=== PATIENT | female | born 1955 | race Caucasian/White ===

== ENCOUNTER 2022-09-16 10:21 | Outpatient (CLI) | payer BC, SELFPAY ==
--- OUTSIDE RECORDS SUMMARY | 2022-09-16 10:24 | XMS_ITS | Continuity of Care Document ---
Author Name Unknown Organization [facility] Address [address] [place] [address]- Care Team Providers Care Aviation Engineer Name Role Phone Physician, PCP Unknown Primary Care Physician Un available Encounter 06/25/22 - 06/25/22 [facility] [address] [place] [address]- Encounter Diagnosis Encounter for screening mammogram for malignant neoplasm of breast(Final) - Discharge Disposition: Discharged to Home or Self Care Attending Physician: Sejal Hinton NP Allergies, Adverse Reactions, Alerts No Known Allergies Immunizations Given and Recorded Vaccine Date Status Refusal Reason SARS-CoV-2 (COVID-19) PFIZER (DILUTED) 07/22/21 Re corded pneumococcal 23-valent vaccine 03/25/21 Recorded pneumococcal 23-valent vaccine 04/12/15 Recorded SARS-CoV-2 (COVID-19) PFIZER 12/18/20 Recorded SARS-CoV-2 (COVID-19) PFIZER 06/07/20 Recorded SARS-CoV-2 (COVID-19) PFIZER 05/17/20 Recorded influenza virus vaccine 11/26/20 Recorded influenza virus vaccine 01/27/19 Recorded influenza virus vaccine 12/27/17 Recorded influenza virus vaccine 12/31/16 Recorded influenza virus vaccine 01/04/16 Recorded influenza virus vaccine 01/18/15 Recorded influenza virus vaccine 12/16/13 Recorded influenza virus vaccine 12/16/12 Recorded influenza virus vaccine 11/28/11 Recorded influenza virus vaccine 01/01/11 Recorded pneumococcal 13-valent vaccine 03/19/20 Recorded zoster vaccine, inactivated 08/23/18 Recorded zoster vaccine, inactivated 05/30/18 Recorded diphtheria/pertussis, acel/tetanus adult 06/10/16 Recorded influenza virus vaccine H1N1 inactivated 01/10/09 Recorded tetanus-diphtheria toxoids 06/01/06 Recorded Not Given Vaccine Date Status Refusal Reason influenza virus vaccine 1 01/17/19 Not Given Fred alaniz Refuses 1Result Comment: not available Medications acetaminophen-HYDROcodone 325 mg-5 mg oral tablet 1 Tab, PO, Q3h, PRN Pain/Discomfort, # 40 Tab, 0 Refill(s), Pharmacy: [facility] [id number] [facility], 162.56, cm, 10/02/21 13:45:00 CDT, Height, 65.433, kg, 10/02/21 13:45:00 CDT, Weight Start Date: 10/03/21 Status: Ordered amLODIPine 5 mg oral tablet Take 1 Tab, PO, Daily Start Date: 08/17/21 Status: Ordered atorvastatin 20 mg oral tablet Take 1 Tab, PO, Bedtime Start Date: 10/02/21 Status: Ordered calcium and vitamin D combination 600 mg-125 Unit oral tablet 1 Tab, PO, BID Start Date: 01/05/20 Status: Ordered donepezil 5 mg oral tablet Take 1 Tab, PO, Bedtime Start Date: 10/02/21 Status: Ordered etodolac 300 mg oral capsule Take 1 Cap, PO, BID, # 21 Cap, 0 Refill(s), Pharmacy: [facility] [address] [facility], 165, cm, 08/17/21 15:13:00 CDT, Height, 66, kg, 08/17/21 15:13:00 CDT, Weight Start Date: 08/17/21 Status: Ordered Evista 60 mg oral tablet Take 1 Tab, PO, Daily, # 90 Tab, 0 Refill(s), Pharmacy: [facility] [id number] [facility], 162.9, cm, 10/03/21 7:40:00 CDT, Height, 65.82, kg, 10/03/21 7:40:00 CDT, Weight Start Date: 03/11/22 Status: Ordered Fluticasone 50 mcg Nasal [place] 1 [place], Nares-Both, Daily, 0 Refill(s) Start Date: 07/22/21 Status: Ordered Ipratropium Nasal [place] 0.03% 2 [place], Nares-Both, BID, 0 Refill(s) Start Date: 07/22/21 Status: Ordered melatonin 3 mg oral tablet Take 1 Tab, PO, Bedtime Start Date: 10/02/21 Status: Ordered Multiple Vitamins with Minerals and Essential Fatty Acids oral capsule 1 Cap, PO, Daily Start Date: 01/05/20 Status: Ordered nadolol 40 mg oral tablet Take 1 Tab, PO, Daily Start Date: 08/17/21 Status: Ordered Protonix 40 mg oral enteric coated tablet Take 1 Tab, PO, Daily, 0 Refill(s) Start Date: 08/10/19 Status: Ordered raloxifene 60 mg oral tablet Take 1 Tab, PO, Daily, # 90 Each, 0 Refill(s), Pharmacy: [facility] [id number] [facility], 162.9, cm, 10/03/21 7:40:00 CDT, Height, 61.798, kg, 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 TRAINING GENERALIST, Weight Start Date: 05/25/22 Status: Ordered sertraline 100 mg oral tablet Take 1 Tab, PO, Daily Start Date: 10/02/21 Status: Ordered traMADol 50 mg oral tablet Take 1 Tab, PO, Q6h, PRN as needed for pain Start Date: 10/02/21 Status: Ordered ZyrTEC 10 mg, PO, Daily, Each, 0 Refill(s) Start Date: 09/30/21 Status: Ordered Problem List Condition Confirmation Course Effective Dates Status Health St atus Informant Depression Confirmed Active esophagitis Confirmed Active Hyperlipidemia Confirmed Active Hypertension Confirmed Active Menopause Confirmed Active Osteopenia Confirmed Active patient Procedures Procedure Date Related Diagnosis Body Site Status Bronchoscopy and bronchoalve olar lavage 10/22/17 Completed Cataract 1 05/23/17 Completed Bronchoscopy and biopsy 2 10/02/15 Completed Esophagogastroduodenoscopy 3 12/01/11 Completed Esophagogastroduodenoscopy 4 06/02/11 Completed Esophagogastroduodenoscopy 5 12/30/10 Completed Esophagogastroduodenoscopy 6 11/18/10 Completed Appendectomy Completed Nose 7 Completed 1PT had cataract surg in apr and in may 31. Deformity in the prepyloric area in the antrum with resolution of the previously seen ulcer. Biopsies were taken. The patient is at risk of developing a stricture in the future. If she develops any signs of gastric outlet obstruction, please refer the patient for possible pyloric dilation if neededl. However, at this time, I do not see any clear stricture. The only thing seen at the pyloric area is a deformity. 2. Otherwise, the rest of the upper endoscopy was normal. 41. Pyloric ulcer in the healing process. Biopsy was taken. 2. Gastritis 5See report. 6Normal esophagus and EG junction. 7sinus washing done under anesthetic Results Radiology Reports * Exam Date Time Procedure Performing Provider Status 06/25/22 12:55 PM MA Mammo Digital Scr een bilat w kade(NB) MarisoledmundoYamini bradley; Auth (Verified) Notes: (MA Mammo Digital Screen bilat w kade(NB)) Reason For Exam: screening, FP 04/04/21, no history REPORT This study was obtained at [facility], [facility], [place], [place]. Images were processedby the Kade CAD Version (Stellarray AI 9.1) and reviewed by the radiologist. This patient is tracked through [employer] Breast Imaging Reporting and Date Tracking System. PROCEDURE: MA Mammo Digital Screen bilat w kade(NB). DEMOGRAPHICS: 66 years. Female. TECHNIQUE: Bilateral digital mammographic images of the breasts were obtained in the standard craniocaudal and mediolateral oblique projections. Bilateral digital breast tomosynthesis was also performed. 2-D images were reconstructed from the 3-D dataset. INDICATION: screening, FP 04/04/21, no history. Lifetime breast cancer risk (Tyrer-Cuzick) : 2.9% PERSONAL/FAMILY HISTORY OF BREAST CANCER: None COMPARISON: Multiple exams dating back to 07/12/2015. Scattered fibroglandular densities are present. No suspicious masses, clusters of microcalcification, or suspicious architectural distortion are seen. Benign coarse calcifications subareolar LEFT breast again noted. IMPRESSION: 1. No mammographic findings suspicious of developing malignancy. 2. Recommend routine annual screening mammography. OVERALL FINAL ASSESSMENT: BI-RADS Category 2, Benign. A letter was sent to the patient. This patient's information was entered into a reminder system with a target date for the next breast imaging. FINAL REPORT Dictated By: Mode Cardoza MD 06/25/2022 13:15 Assigned Physician: Mode Cardoza MD Reviewed and Electronically Signed By: Mode Cardoza MD 06/25/2022 13:17 Transcribed by: DYLON 06/25/2022 13:15 Technologist: YANDY Social History Social History Type Response Smoking Status Former smoker, quit more than 1 year ago Sex DBT Breast - bilateral screening * Powerscribe, Self Correct: TRANSCRIBE Powerscribe, Self Correct: TRANSCRIBE, VERIFY Mode Cardoza MD: VERIFY, VERIFY Mode Cardoza MD: VERIFY Event Display: Report Authored Date: [id number] This study was obtained at [facility], [facility], [place], [place]. Images were processedby the Kade CAD Version (Stellarray AI 9.1) and reviewed by the radiologist. This patient is tracked through [employer] Breast Imaging Reporting and Date Tracking System. PROCEDURE: MA Mammo Digital Screen bilat w kade(NB). DEMOGRAPHICS: 66 years. Female. TECHNIQUE: Bilateral digital mammographic images of the breasts were obtained in the standard craniocaudal and mediolateral oblique projections. Bilateral digital breast tomosynthesis was also performed. 2-D images were reconstructed from the 3-D dataset. INDICATION: screening, FP 04/04/21, no history. Lifetime breast cancer risk (Tyrer-Cuzick) : 2.9% PERSONAL/FAMILY HISTORY OF BREAST CANCER: None COMPARISON: Multiple exams dating back to 07/12/2015. Scattered fibroglandular densities are present. No suspicious masses, clusters of microcalcification, or suspicious architectural distortion are seen. Benign coarse calcifications subareolar LEFT breast again noted. IMPRESSION: 1. No mammographic findings suspicious of developing malignancy. 2. Recommend routine annual screening mammography. OVERALL FINAL ASSESSMENT: BI-RADS Category 2, Benign. A letter was sent to the patient. This patient's information was entered into a reminder system with a target date for the next breast imaging. FINAL REPORT Dictated By: Mode Cardoza MD 06/25/2022 13:15 Assigned Physician: Mode Cardoza MD Reviewed and Electronically Signed By: Mode Cardoza MD 06/25/2022 13:17 Transcribed by: DYLON 06/25/2022 13:15 Technologist: YANDY Patient Care team information Care Team Personnel Name: Sameer Cortez MD Position: Non User Member Role: Family Physician Address: Address: [address] [address]- [place] Name: Physician, PCP Unknown Position: Non User Member Role: Primary Care Physician Care Team Related Persons Name: ELIZABETHPETER Kale Address: home [address] [place] [address] [facility] [place]
--- OUTSIDE RECORDS SUMMARY | 2022-09-16 10:24 | XMS_ITS | Continuity of Care Document ---
Author Name Unknown Organization [facility] Address [address] [place] [address]- Care Team Providers Care Stripping Machine Operator Name Role Phone Delores Myra Henley Primary Care Physician [phone] Encounter 09/19/21 - 09/19/[address] [address]- Discharge Disposition: Discharged to Home or Self Care Attending Physician: Bryant Hallman MD Allergies, Adverse Reactions, Alerts No Known Allergies Immunizations Given and Recorded Vaccine Date Status Refusal Reason influenza virus vaccine 01/27/19 Recorded influenza virus vaccine 12/27/17 Recorded influenza virus vaccine 12/31/16 Recorded influenza virus vaccine 01/04/16 Recorded influenza virus vaccine 01/18/15 Recorded influenza virus vaccine 12/16/13 Recorded influenza virus vaccine 12/16/12 Recorded influenza virus vaccine 11/28/11 Recorded influenza virus vaccine 01/01/11 Recorded zoster vaccine, inactivated 08/23/18 Recorded zoster vaccine, inactivated 05/30/18 Recorded diphtheria/pertussis, acel/tetanus adult 06/10/16 Recorded pneumococcal 23-valent vaccine 04/12/15 Recorded influenza virus vaccine H1N1 inactivated 01/10/09 Recorded tetanus-diphtheria toxoids 06/01/06 Recorded Not Given Vaccine Date Status Refusal Reason influenza virus vaccine 1 01/17/19 Not Given Pa tient Refuses 1Result Comment: not available Medications amLODIPine 5 mg oral tablet Take 1 Tab, PO, Daily Start Date: 08/17/21 Status: Ordered calcium and vitamin D combination 600 mg-125 Unit oral tablet 2 Tab, PO, BID Start Date: 01/05/20 Status: Ordered donepezil 5 mg oral tablet Take 1 Tab, PO, QBedtime, # 30 Tab, 3 Refill(s), Pharmacy: [facility] [id number] [facility], 165, cm, 08/17/21 15:13:00 CDT, Height, 66, kg, 08/17/21 15:13:00 CDT, Weight Start Date: 09/02/21 Status: Ordered etodolac 300 mg oral capsule Take 1 Cap, PO, BID, # 21 Cap, 0 Refill(s), Pharmacy: [facility] [address] [facility], 165, cm, 08/17/21 15:13:00 CDT, Height, 66, kg, 08/17/21 15:13:00 CDT, Weight Start Date: 08/17/21 Status: Ordered Evista 60 mg oral tablet Take 1 Tab, PO, Daily, # 90 Tab, 3 Refill(s), Pharmacy: [facility] [address] [facility], 162, cm, 01/06/20 21:28:00 CDT, Height, 66, kg, 09/05/20 13:21:00 CDT, Weight Start Date: 03/11/21 Status: Ordered Fluticasone 50 mcg Nasal [place] 1 [place], Nares-Both, Daily, 0 Refill(s) Start Date: 07/22/21 Status: Ordered Ipratropium Nasal [place] 0.03% 2 [place], Nares-Both, BID, 0 Refill(s) Start Date: 07/22/21 Status: Ordered Lipitor 20 mg oral tablet Take 1 Tab, 20 mg, , PO, , Bedtime, Dispense Quantity 90, Tab, Number of Refills 3, Maintenance Start Date: 05/19/11 Stop Date: 05/13/12 Status: Ordered Multiple Vitamins with Minerals and Essential Fatty Acids oral capsule 1 Cap, PO, Daily Start Date: 01/05/20 Status: Ordered nadolol 40 mg oral tablet Take 1 Tab, PO, Daily Start Date: 08/17/21 Status: Ordered Protonix 40 mg oral enteric coated tablet Take 1 Tab, PO, Daily, 0 Refill(s) Start Date: 08/10/19 Status: Ordered TraZODone 25 mg, PO, Bedtime, Each, 0 Refill(s) Start Date: 06/12/21 Status: Ordered Zoloft 100 mg oral tablet Take 1 Tab, 100 mg, , PO, , Daily, Dispense Quantity 90, Tab, Number of Refills 3, Substitution Allowed, Maintenance Start Date: 05/19/11 Stop Date: 05/13/12 Status: Ordered Problem List Condition Effective Dates Status Health Status Inform ant Depression(Confirmed) Active esophagitis(Confirmed) Active Hyperlipidemia(Confirmed) Active Hypertension(Confirmed) Active Menopause(Confirmed) Active Migraine(Confirmed) Active Osteopenia(Confirmed) Active pat ient PICC (peripherally inserted central catheter) in place(Confirmed) 01/08/20 Active Procedures Procedure Date Related Diagnosis Body Site Status Bronchoscopy and bronchoalve olar lavage 10/22/17 Completed Cataract 1 05/23/17 Completed Bronchoscopy and biopsy 10/02/15 C ompleted Esophagogastroduodenoscopy 2 12/01/11 Completed Esophagogastroduodenoscopy 3 06/02/11 Completed Esophagogastroduodenoscopy 4 12/30/10 Completed Esophagogastroduodenoscopy 5 11/18/10 Completed Appendectomy Completed Nose 6 Completed 1PT had cataract surg in apr and in jun 10. Deformity in the prepyloric area in the [...] rest of the upper endoscopy was normal. 31. Pyloric ulcer in the healing process. Biopsy was taken. 2. Gastritis 4See report. 5Normal esophagus and EG junction. 6sinus washing done under anesthetic Social History Social History Type Response Smoking Status Never smoked Sex
--- OUTSIDE RECORDS SUMMARY | 2022-09-16 10:24 | XMS_ITS | Continuity of Care Document ---
Author Name Unknown Organization [facility] Address [address] [place] [address]- Care Team Providers Care Dog Walker Name Role Phone Myra Estrella Primary Care Physician [phone] Encounter 04/16/22 - 04/16/22 [facility] [place] [address] [place] [address]- Encounter Diagnosis Change in bowel habit(Final) - Spondylosis without myelopathy or radiculopathy, lumbar region(Final) - Discharge Disposition: Discharged to Home or Self Care Attending Physician: Ny Monge MD Allergies, Adverse Reactions, Alerts No Known [...] Pain/Discomfort, # 40 Tab, 0 Refill(s), Pharmacy: [facility] [id number] [facility], 162.56, cm, 10/02/21 13:45:00 CDT, [...] BID, # 21 Cap, 0 Refill(s), Pharmacy: [facility] [id number] [facility], 165, cm, 08/17/21 15:13:00 CDT, Height, 66, kg, 08/17/21 15:13:00 CDT, Weight Start Date: 08/17/21 Status: Ordered Evista 60 mg oral tablet Take 1 Tab, PO, Daily, # 90 Tab, 0 Refill(s), Pharmacy: [facility] [address] [facility], 162.9, cm, 10/03/21 7:40:00 CDT, Height, 65.82, kg, 10/03/21 7:40:00 CDT, Weight Start Date: 03/11/22 Status: Ordered Fluticasone 50 mcg Nasal [place] 1 [place], Nares-Both, Daily, 0 Refill(s) Start Date: 07/22/21 Status: Ordered Ipratropium Nasal [place] 0.03% 2 [place], Nares-Both, BID, 0 Refill(s) Start Date: 07/22/21 [...] Take 1 Tab, PO, Daily, # 90 Tab Start Date: 10/02/21 Status: Ordered sertraline 100 mg oral tablet Take 1 Tab, PO, Daily Start Date: 10/02/21 Status: Ordered traMADol 50 mg oral tablet Take 1 Tab, PO, Q6h, PRN as needed for pain Start Date: 10/02/21 Status: Ordered ZyrTEC 10 mg, PO, Daily, Each, 0 Refill(s) Start Date: 09/30/21 Status: Ordered Problem List Condition Confirmation Course Effective Dates Status Health St at Informant Depression Confirmed Active esophagitis Confirmed Active [...] cataract surg in apr and in may 2x 31. Deformity in the prepyloric area in [...] Exam Date Time Procedure Performing Provider Status 04/16/22 2:11 PM XR Abdomen Series 2 Views Sejal Quintanilla; Christine (Verified) Notes: (XR Abdomen Series 2 Views) Reason For Exam: altered bowel habits REPORT PROCEDURE: XR Abdomen Series 2 Views. DEMOGRAPHICS: 66 years. Female. INDICATION: altered bowel habits. COMPARISON: 04/04/2005. FINDINGS: Supine and upright views of the abdomen demonstrate scattered air- fluid levels in nondilated loops of colon. No pneumatosis or pneumoperitoneum are seen. No portal venous air. Increasing levoscoliosis of the lumbar spine with progressive degenerative disc disease is seen. No pathologic calcifications are noted. IMPRESSION: 1. Nonspecific, nonobstructive bowel gas pattern with scattered air-fluid levels in nondilated loops of colon. 2. Worsening scoliosis and degenerative change of the lumbar spine. FINAL REPORT Dictated By: Jose Miguel Becker MD 04/16/2022 16:25 Assigned Physician: Jose Miguel Becker MD Reviewed and Electronically Signed By: Jose Miguel Becker MD 04/16/2022 16:30 Transcribed by: DYLON 04/16/2022 16:25 Technologist: CARLO Social History Social History Type Response Smoking Status Former smoker, quit more than 1 year ago Sex XR Abdomen 2 Views * Jose Miguel Becker MD: PERFORM, VERIFY Jose Miguel Becker MD: VERIFY, VERIFY Jose Miguel Becker MD: VERIFY Powerscribe, Self Correct: TRANSCRIBE Event Display: Report Authored Date: [id number] PROCEDURE: XR Abdomen Series 2 Views. DEMOGRAPHICS: 66 years. Female. INDICATION: altered bowel habits. COMPARISON: 04/04/2005. FINDINGS: Supine and upright views of the abdomen demonstrate scattered air- fluid levels in nondilated loops of colon. No pneumatosis or pneumoperitoneum are seen. No portal venous air. Increasing levoscoliosis of the lumbar spine with progressive degenerative disc disease is seen. No pathologic calcifications are noted. IMPRESSION: 1. Nonspecific, nonobstructive bowel gas pattern with scattered air-fluid levels in nondilated loops of colon. 2. Worsening scoliosis and degenerative change of the lumbar spine. FINAL REPORT Dictated By: Jose Miguel Becker MD 04/16/2022 16:25 Assigned Physician: Jose Miguel Becker MD Reviewed and Electronically Signed By: Jose Miguel Becker MD 04/16/2022 16:30 Transcribed by: DYLON 04/16/2022 16:25 Technologist: [facility] Patient Care team information Care Team Personnel Name: Sameer Cortez MD Position: Non User Member Role: Family Physician Address: Address: [facility] [address] [place] [address] Name: Myra Estrella MD Position: Physician Member Role: Primary Care Physician Address: Address: [facility] [address] Care Team Related Persons Name: PETER JOHNSON Address: [address] [id number] [facility]
--- OUTSIDE RECORDS SUMMARY | 2022-09-16 10:24 | XMS_ITS | Continuity of Care Document ---
Author Name Unknown Organization [facility] Address [address] [place] [address]- Care Team Providers Care Testing Engineer Name Role Phone Myra Estrella Primary Care Physician Encounter 02/11/22 - 02/11/[address] [address]- Encounter Diagnosis Spondylolisthesis, lumbosacral region(Final) - Spondylolisthesis, lumbar region(Final) - Other intervertebral disc degeneration, lumbar region(Final) - Other forms of scoliosis, lumbar region(Final) - Other specified disorders of bone density and structure, unspecified site(Final) - Spondylosis without myelopathy or radiculopathy, lumbar [...] virus vaccine 12/16/12 Recorded influenza virus vaccine 9/7/12 Recorded influenza virus vaccine 01/01/11 Recorded pneumococcal 13-valent vaccine 03/19/20 Recorded zoster vaccine, inactivated 08/23/18 Recorded zoster vaccine, inactivated 05/30/18 Recorded diphtheria/pertussis, acel/tetanus adult 06/10/16 Recorded influenza virus vaccine H1N1 inactivated 01/10/09 Recorded tetanus-diphtheria toxoids 06/01/06 Recorded Not Given Vaccine Date Status Refusal Reason influenza virus vaccine 1 01/17/19 Not Given Pa tient Refuses 1Result Comment: not available Medications acetaminophen-HYDROcodone 325 mg-5 mg oral tablet 1 Tab, PO, Q3h, PRN Pain/Discomfort, # 40 Tab, 0 Refill(s), Pharmacy: [facility] [id number] [facility], 162.56, cm, 10/02/21 13:45:00 CDT, [...] BID, # 21 Cap, 0 Refill(s), Pharmacy: [facility] [address] [facility], 165, cm, 08/17/21 15:13:00 CDT, Height, 66, kg, 08/17/21 15:13:00 CDT, Weight Start Date: 08/17/21 Status: Ordered Fluticasone 50 mcg Nasal [place] 1 [place], Nares-Both, Daily, 0 Refill(s) Start Date: 07/22/21 Status: Ordered Ipratropium Nasal [place] 0.03% 2 [place], Nares-Both, BID, 0 Refill(s) Start Date: 07/22/21 [...] PO, Daily Start Date: 10/02/21 Status: Ordered sertraline 100 [...] cataract surg in apr and in may 2x3 31. Deformity in the prepyloric area in [...] EG junction. 7sinus washing done under anesthetic Social History Social History Type Response Smoking Status Former smoker, quit more than 1 year ago Sex Patient Care team information Personnel Name: Delores DIAZ, Myra Henley Address: Address: [facility] [address]
--- OUTSIDE RECORDS SUMMARY | 2022-09-16 10:24 | XMS_ITS | Continuity of Care Document ---
Author Name Unknown Organization [facility] Address [address] [place] [address]- Care Team Providers Care Optician Manager Name Role Phone Physician, PCP Unknown Primary Care Physician Un available Encounter 06/25/22 - 06/25/22 [facility] [address] [place] [address]- Discharge Disposition: Discharged to Home or Self Care Attending Physician: Mary Jane BEEKEEPER, Sejal Allergies, Adverse Reactions, Alerts No Known Allergies [...] Pain/Discomfort, # 40 Tab, 0 Refill(s), Pharmacy: [facility] [address] [facility], 162.56, cm, 10/02/21 13:45:00 CDT, [...] BID, # 21 Cap, 0 Refill(s), Pharmacy: [facility] [address] [facility], 165, cm, 08/17/21 15:13:00 CDT, Height, 66, kg, 08/17/21 15:13:00 CDT, Weight Start Date: 08/17/21 Status: Ordered Evista 60 mg oral tablet Take 1 Tab, PO, Daily, # 90 Tab, 0 Refill(s), Pharmacy: [facility] [id number] [facility], 162.9, cm, 10/03/21 7:40:00 CDT, Height, 65.82, kg, 10/03/21 7:40:00 CDT, Weight Start Date: 03/11/22 Status: Ordered Fluticasone 50 mcg Nasal [place] 1 [place], Nares-Both, Daily, 0 Refill(s) Start Date: 07/22/21 Status: Ordered Ipratropium Nasal [place] 0.03% 2 [place], Nares-Both, BID, 0 Refill(s) Start Date: 07/22/21 [...] Daily, # 90 Each, 0 Refill(s), Pharmacy: [id number], 162.9, cm, 10/03/21 7:40:00 CDT, Height, 61.798, kg, 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 PER DIEM CLERK, Weight Start Date: 05/25/22 Status: Ordered sertraline [...] had cataract surg in apr and in may3 31. Deformity in the prepyloric area in [...] year ago Sex Patient Care team information Care Team Personnel Name: Diego DIAZ, Sameer Rocha Position: Non User Member Role: Family Physician Address: Address: [facility] [address] [place] [address] Name: Physician, PCP Unknown Position: Non User Member Role: Primary Care Physician Care Team Related Persons Name: PETER JOHNSON Address: home [address] [place] [address] [facility]
--- OUTSIDE RECORDS SUMMARY | 2022-09-16 10:25 | XMS_ITS | Continuity of Care Document ---
Author Name Unknown Organization [facility] Address [address] [place] [address]- Care Team Providers Care Assistant Superintendent Name Role Phone Myra Estrella Primary Care Physician Encounter 02/11/22 - 02/11/22 [place] [address] [address] [place] [address]- Discharge Disposition: Discharged to Home or Self [...] Pain/Discomfort, # 40 Tab, 0 Refill(s), Pharmacy: [facility] [address] [facility], 162.56, cm, 10/02/21 13:45:00 CDT, [...] BID, # 21 Cap, 0 Refill(s), Pharmacy: [facility] [address] [facility], 165, cm, 08/17/21 15:13:00 CDT, Height, 66, kg, 08/17/21 15:13:00 CDT, Weight Start Date: 08/17/21 Status: Ordered Fluticasone 50 mcg Nasal [place] 1 [place], Nares-Both, Daily, 0 Refill(s) Start Date: 07/22/21 Status: Ordered Ipratropium Nasal [place] 0.03% 2 [place], Nares-Both, BID, 0 Refill(s) Start Date: 07/22/21 [...] Sex Patient Care team information Personnel Name: Myra Estrella MD Address: Address: [facility] [address]
--- OUTSIDE RECORDS SUMMARY | 2022-09-16 10:25 | XMS_ITS | Continuity of Care Document ---
Author Name Unknown Organization [facility] Address [address] [place] [address]- Care Team Providers Care Mold Shaker Name Role Phone Myra Estrella Primary Care Physician Encounter 04/09/22 - 04/09/[address] [address]- Discharge Disposition: Discharged to Home or Self [...] virus vaccine 1 01/17/19 Not Given Pa corbin Refuses 1Result Comment: not available Medications acetaminophen-HYDROcodone 325 mg-5 mg oral tablet 1 Tab, PO, Q3h, PRN Pain/Discomfort, # 40 Tab, 0 Refill(s), Pharmacy: [facility] [address] [facility], 162.56, cm, 10/02/21 13:45:00 CDT, [...] BID, # 21 Cap, 0 Refill(s), Pharmacy: [facility] [address] [facility], 165, cm, 08/17/21 15:13:00 CDT, Height, 66, kg, 08/17/21 15:13:00 CDT, Weight Start Date: 08/17/21 Status: Ordered Evista 60 mg oral tablet Take 1 Tab, PO, Daily, # 90 Tab, 0 Refill(s), Pharmacy: [facility] [address] [facility], 162.9, cm, 10/03/21 7:40:00 CDT, Height, 65.82, kg, 10/03/21 7:40:00 CDT, Weight Start Date: 03/11/22 Status: Ordered Fluticasone 50 mcg Nasal [place] 1 [place], Nares-Both, Daily, 0 Refill(s) Start Date: 07/22/21 Status: Ordered Ipratropium Nasal [place] 0.03% 2 [place], Nares-Both, BID, 0 Refill(s) Start Date: 07/22/21 [...] User Member Role: Family Physician Address: Address: [facility] [address] Name: Myra Estrella MD Position: Physician Member Role: Primary Care Physician Address: Address: [facility] [address] Care Team Related Persons Name: PETER JOHNSON Address: home [address] [place] [address] [place] [address]
--- OUTSIDE RECORDS SUMMARY | 2022-09-16 10:25 | XMS_ITS | Continuity of Care Document ---
Author Name Unknown Organization [facility] Address [address] [place] [address]- Care Team Providers Care Director News Name Role Phone DeloresJohnMyra A Primary Care Physician Encounter 10/03/21 - 10/03/21 [place] [address] [place] [address]- Discharge Disposition: Discharged to Home or Self Care Attending Physician: Bryant Hallman MD Allergies, Adverse Reactions, Alerts No Known Allergies Assessment and Plan Extracted from: Title:Bety LEIVA Author:Dariusz RN, Yury Cuello Date:09/27/21 HISTORY & PHYSICAL Immunizations Given and Recorded Vaccine Date Status [...] Pain/Discomfort, # 40 Tab, 0 Refill(s), Pharmacy: [facility] [address] [facility], 162.56, cm, 10/02/21 13:45:00 CDT, [...] BID, # 21 Cap, 0 Refill(s), Pharmacy: [facility] [address] [facility], 165, cm, 08/17/21 15:13:00 CDT, Height, 66, kg, 08/17/21 15:13:00 CDT, Weight Start Date: 08/17/21 Status: Ordered Fluticasone 50 mcg Nasal [place] 1 [place], Nares-Both, Daily, 0 Refill(s) Start Date: 07/22/21 Status: Ordered Ipratropium Nasal [place] 0.03% 2 [place], Nares-Both, BID, 0 Refill(s) Start Date: 07/22/21 [...] 0 Refill(s) Start Date: 09/30/21 Status: Ordered Mental Status 10/03/21 Level of Consciousness-CAM Alert Orientation-CAM Oriented x 4 Cognitive-CAM Able to follow 3 lyssa p commands, Judgment sound Memory-CAM Intact/Present Behavior/Mood/Affect-CAM Appropriate, Calm, Cooperative Problem List Condition Effective Dates Status Health Status Inform ant Depression(Confirmed) Active esophagitis(Confirmed) Active Hyperlipidemia(Confirmed) Active Hypertension(Confirmed) Active Menopause(Confirmed) Active Osteopenia(Confirmed) Active pat ient Procedures Procedure Date Related Diagnosis Body Site [...] EG junction. 7sinus washing done under anesthetic Vital Signs Most recent to oldest [Reference Range]: 1 Respiratory Rate [12-18 Br PM] 20 Br PM *HI* (10/03/21 9:45 AM) Pulse Rate [60-100 BPM] 68 BPM (10/03/21 9:45 AM) Pulse Oximetry [90-100 %] 97 % (10/03/21 9:45 AM) Blood Pressure [90-140/65-90 mmHg] 122/7 8mmHg (10/03/21 9:45 AM) Temperature Celsius [36.1-38 Degrees C] 36.1 Degrees C (10/03/21 8:19 AM) Temperature Celsius Calculation 36.8 Deg jimmie C (10/03/21 9:30 AM) Height 162.9 cm (10/03/21 7:40 AM) Weight 65.82 kg (10/03/21 7:40 AM) Body Mass Index 24.8 kg/m2 (10/03/21 7:40 AM) Social History Social History Type Response Smoking Status Former smoker, quit more than 1 year ago Sex
--- OUTSIDE RECORDS SUMMARY | 2022-09-16 10:25 | XMS_ITS | Continuity of Care Document ---
Author Name Unknown Organization [facility] Address [address] [place] [address]- Care Team Providers Care Room Service Clerk Name Role Phone Myra Estrella Kale Primary Care Physician [phone] Encounter 09/30/21 - 09/30/[address] [address]- Discharge Disposition: Discharged to Home or Self Care Attending Physician: Aftab Johnson Allergies, Adverse Reactions, Alerts No Known Allergies [...] virus vaccine 1 01/17/19 Not Given Fred tient Refuses 1Result Comment: not available Medications amLODIPine 5 mg oral tablet Take 1 Tab, PO, Daily Start Date: 08/17/21 Status: Ordered calcium and vitamin D combination 600 mg-125 Unit oral tablet 2 Tab, PO, BID Start Date: 01/05/20 Status: Ordered donepezil 5 mg oral tablet Take 1 Tab, PO, QBedtime, # 90 Tab, 3 Refill(s), Pharmacy: [id number], 165, cm, 08/17/21 15:13:00 CDT, Height, 66.6, kg, 09/30/21 14:49:00 CDT, Weight Start Date: 09/30/21 Stop Date: 09/25/22 Status: Ordered etodolac 300 mg oral capsule Take 1 Cap, PO, BID, # 21 Cap, 0 Refill(s), Pharmacy: [facility] [address] [facility], 165, cm, 08/17/21 15:13:00 CDT, Height, 66, kg, 08/17/21 15:13:00 CDT, Weight Start Date: 08/17/21 Status: Ordered Evista 60 mg oral tablet Take 1 Tab, PO, Daily, # 90 Tab, 3 Refill(s), Pharmacy: [facility] [address] [facility], 162, cm, 01/06/20 21:28:00 CDT, Height, 66, kg, 09/05/20 13:21:00 CDT, Weight Start Date: 03/11/21 Status: Ordered Fluticasone 50 mcg Nasal [place] 1 [place], Nares-Both, Daily, 0 Refill(s) Start Date: 07/22/21 Status: Ordered Ipratropium Nasal [place] 0.03% 2 [place], Nares-Both, BID, 0 Refill(s) Start Date: 07/22/21 [...] Date: 05/19/11 Stop Date: 05/13/12 Status: Ordered ZyrTEC 10 mg, PO, Daily, Each, 0 Refill(s) Start Date: 09/30/21 Status: Ordered Problem List Condition Effective Dates [...] EG junction. 6sinus washing done under anesthetic Vital Signs Most recent to oldest [Reference Range]: 1 Respiratory Rate [12-18 Br PM] 16 Br PM (09/30/21 2:52 PM) Pulse Rate [60-100 BPM] 64 BPM (09/30/21 2:52 PM) Blood Pressure [90-140/65-90 mmHg] 111/6 1mmHg (09/30/21 2:52 PM) Weight 66.6 kg (09/30/21 2:52 PM) Social History Social History Type Response Smoking Status Never smoked Sex
--- OUTSIDE RECORDS SUMMARY | 2022-09-16 10:25 | XMS_ITS | Continuity of Care Document ---
Author Name Unknown Organization [facility] Address [address] [place] [address]- Care Team Providers Care Prep Person Name Role Phone Myra Estrella Primary Care Physician [phone] Encounter 12/21/21 - 01/08/[address] [address]- Encounter Diagnosis Low back pain, unspecified(Final) - Discharge Disposition: Discharged to Home or Self Care Attending Physician: Viji DIAZ, Bryant Garcia Allergies, Adverse Reactions, Alerts No Known Allergies [...] Pain/Discomfort, # 40 Tab, 0 Refill(s), Pharmacy: [facility] [address] [facility], 162.56, cm, 10/02/21 13:45:00 CDT, [...] 21 Cap, 0 Refill(s), Pharmacy: [facility] [address] [facility], 165, cm, 08/17/21 15:13:00 CDT, Height, 66, kg, 08/17/21 15:13:00 CDT, Weight Start Date: 08/17/21 Status: Ordered Fluticasone 50 mcg Nasal [place] 1 [place], Nares-Both, Daily, 0 Refill(s) Start Date: 07/22/21 Status: Ordered Ipratropium Nasal [place] 0.03% 2 [place], Nares-Both, BID, 0 Refill(s) Start Date: 07/22/21 [...] Tab, PO, Daily, 0 Refill(s) Start Date: 5/20/20 Status: Ordered raloxifene 60 mg oral tablet [...] quit more than 1 year ago Sex Care Team Personnel Name: Myra Estrella MD Address: Address: [facility] [address] [place] [address]
--- OUTSIDE RECORDS SUMMARY | 2022-09-16 10:25 | XMS_ITS | Continuity of Care Document ---
Author Name Unknown Organization [facility] Address [address] [place] [address]- Care Team Providers Care Topographical Drafter Name Role Phone AntelmoCrys Soledad Primary Care Physician Encounter 07/28/22 - 07/28/22 [place] [place] [address]- Discharge Disposition: Discharged to Home or Self [...] Pain/Discomfort, # 40 Tab, 0 Refill(s), Pharmacy: [facility] [address] [facility], 162.56, cm, 10/02/21 13:45:00 CDT, [...] BID, # 21 Cap, 0 Refill(s), Pharmacy: [facility] [address] [facility], 165, cm, 08/17/21 15:13:00 CDT, Height, 66, kg, 08/17/21 15:13:00 CDT, Weight Start Date: 08/17/21 Status: Ordered Evista 60 mg oral tablet Take 1 Tab, PO, Daily, # 90 Tab, 0 Refill(s), Pharmacy: [facility] [address] [facility], 162.9, cm, 10/03/21 7:40:00 CDT, Height, 65.82, kg, 10/03/21 7:40:00 CDT, Weight Start Date: 03/11/22 Status: Ordered Fluticasone 50 mcg Nasal [place] 1 [place], Nares-Both, Daily, 0 Refill(s) Start Date: 07/22/21 Status: Ordered Ipratropium Nasal [place] 0.03% 2 [place], Nares-Both, BID, 0 Refill(s) Start Date: 07/22/21 [...] Daily, # 90 Each, 0 Refill(s), Pharmacy: [facility] [address] [facility], 162.9, cm, 10/03/21 7:40:00 CDT, Height, 61.798, kg, 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 DEMOGRAPHICS: 67 years. Female. TECHNIQUE: Multiplanar magnetic resonance imaging performed without and with intravenous gadolinium. INDICATION: dilated pancreatic duct, pancreatic cyst. COMPARISON: 12/30/2021 MRI abdomen and 09/09/2021 abdomen MRI DISCUSSION: Significant dilation of the pancreatic duct, duct dilation is most prominent within thepancreatic head, findings are stable to minimally progressive when compared to 09/09/2021 exam. Some side duct dilation is noted within the pancreatic body and tail, minimal change. Additional cysticarea which appears along the margin of the pancreatic head, for example image 15 within series 4 measuring 1.4 cm, grossly unchanged. Maximal pancreatic duct measurement obtained image 13 within series 4 at 10 mm, previously 9 mm 12/30/2021 and 8 mm 09/09/2021. Multiloculated cystic lesion within the spleen, unchanged. Additional probable small adjacent simple cyst. Bilateral kidney cysts, no further follow-up needed. No liver mass lesion. No adenopathy. No ascites. IMPRESSION: 1. 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 Additional nonspecific cystic lesion along the margin the pancreatic head which is grossly unchanged. 2. Multiloculated lesion within the spleen, nonspecific; potential lymphangioma, not appreciably changed. FINAL REPORT Dictated By: Brody Atkinson MD 07/28/2022 14:55 Assigned Physician: Brody Atkinson MD Reviewed and Electronically Signed By: Brody Atkinson MD 07/28/2022 15:21 Transcribed by: DYLON 07/28/2022 14:55 Technologist: FREDY Social History Social History Type Response Smoking Status Former smoker, quit more than 1 year ago Sex MR Abdomen WO and W contrast IV * Brody Atkinson MD: PERFORM, VERIFY Brody Atkinson MD: VERIFY, VERIFY Brody Atkinson MD: VERIFY Powerscribe, Self Correct: TRANSCRIBE Event Display: Report Authored Date: [id number] PROCEDURE: MRI Abdomen w and w/o Contrast. DEMOGRAPHICS: 67 years. Female. TECHNIQUE: Multiplanar magnetic resonance imaging performed without and with intravenous gadolinium. INDICATION: dilated pancreatic duct, pancreatic cyst. COMPARISON: 12/30/2021 MRI abdomen and 09/09/2021 abdomen MRI DISCUSSION: Significant dilation of the pancreatic duct, duct dilation is most prominent within thepancreatic head, findings are stable to minimally progressive when compared to 09/09/2021 exam. Some side duct dilation is noted within the pancreatic body and tail, minimal change. Additional cysticarea which appears along the margin of the pancreatic head, for example image 15 within series 4 measuring 1.4 cm, grossly unchanged. Maximal pancreatic duct measurement obtained image 13 within series 4 at 10 mm, previously 9 mm 12/30/2021 and 8 mm 09/09/2021. Multiloculated cystic lesion within the spleen, unchanged. Additional probable small adjacent simple cyst. Bilateral kidney cysts, no further follow-up needed. No liver mass lesion. No adenopathy. No ascites. IMPRESSION: 1. 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 Additional nonspecific cystic lesion along the margin the pancreatic head which is grossly unchanged. 2. Multiloculated lesion within the spleen, nonspecific; potential lymphangioma, not appreciably changed. FINAL REPORT Dictated By: Brody Atkinson MD 07/28/2022 14:55 Assigned Physician: Brody Atkinson MD Reviewed and Electronically Signed By: Brody Atkinson MD 07/28/2022 15:21 Transcribed by: [facility] 07/28/2022 14:55 Technologist: FREDY Patient Care team information Care Team Personnel Name: Sameer Cortez MD Position: Non User Member Role: Family Physician Address: Address: [facility] [address] Name: Crys Rodriges NP Position: P II - PB Member Role: Primary Care Physician Address: Address: [facility] [address] Care Team Related Persons Name: PETER JOHNSON Address: home [address] [place] [address] [facility]
--- OUTSIDE RECORDS SUMMARY | 2022-09-16 10:25 | XMS_ITS | Continuity of Care Document ---
Author Name Unknown Organization [facility] Address [address] [place] [address]- Care Team Providers Care Medicare Compliance Auditor Name Role Phone Myra Estrella Primary Care Physician [phone] Encounter 09/26/21 - 09/26/[address] [address]- Encounter Diagnosis Other specified diseases of pancreas(Final) - Discharge Disposition: Discharged to Home or [...] alaniz Refuses 1Result Comment: not available Medications amLODIPine 5 mg oral tablet Take 1 Tab, PO, Daily Start Date: 08/17/21 Status: Ordered calcium and vitamin D combination 600 mg-125 Unit oral tablet 2 Tab, PO, BID Start Date: 01/05/20 Status: Ordered donepezil 5 mg oral tablet Take 1 Tab, PO, QBedtime, # 30 Tab, 3 Refill(s), Pharmacy: [facility] [id number] [facility], 165, cm, 08/17/21 15:13:00 CDT, Height, 66, kg, 08/17/21 15:13:00 CDT, Weight Start Date: 09/02/21 Status: Ordered etodolac 300 mg oral capsule Take 1 Cap, PO, BID, # 21 Cap, 0 Refill(s), Pharmacy: [facility] [address] [facility], 165, cm, 08/17/21 15:13:00 CDT, Height, 66, kg, 08/17/21 15:13:00 CDT, Weight Start Date: 08/17/21 Status: Ordered Evista 60 mg oral tablet Take 1 Tab, PO, Daily, # 90 Tab, 3 Refill(s), Pharmacy: [facility] [address] [facility], 162, cm, 01/06/20 21:28:00 CDT, Height, 66, kg, 09/05/20 13:21:00 CDT, Weight Start Date: 03/11/21 Status: Ordered Fluticasone 50 mcg Nasal [place] 1 [place], Nares-Both, Daily, 0 Refill(s) Start Date: 07/22/21 Status: Ordered Ipratropium Nasal [place] 0.03% 2 [place], Nares-Both, BID, 0 Refill(s) Start Date: 07/22/21 [...]
--- OUTSIDE RECORDS SUMMARY | 2022-09-16 10:25 | XMS_ITS | Continuity of Care Document ---
Author Name Unknown Organization [facility] Address [address] [place] [address]- Care Team Providers Care Traffic Inspector Name Role Phone Crys Rodriges Primary Care Physician [phone] Encounter 07/23/22 - 07/23/[address] [address]- Discharge Disposition: Discharged to Home or Self Care Attending Physician: Crys Rodriges NP Allergies, Adverse Reactions, Alerts No Known Allergies Assessment and Plan Future Scheduled Tests Radiology* MRI Abdomen w and w/o Contrast 07/28/22 Immunizations Given and Recorded Vaccine Date Status [...] Pain/Discomfort, # 40 Tab, 0 Refill(s), Pharmacy: [facility] [address] [facility], 162.56, cm, 10/02/21 13:45:00 CDT, [...] BID, # 21 Cap, 0 Refill(s), Pharmacy: [facility] [address] [facility], 165, cm, 08/17/21 15:13:00 CDT, Height, 66, kg, 08/17/21 15:13:00 CDT, Weight Start Date: 08/17/21 Status: Ordered Evista 60 mg oral tablet Take 1 Tab, PO, Daily, # 90 Tab, 0 Refill(s), Pharmacy: [facility] [address] [facility], 162.9, cm, 10/03/21 7:40:00 CDT, Height, 65.82, kg, 10/03/21 7:40:00 CDT, Weight Start Date: 03/11/22 Status: Ordered Fluticasone 50 mcg Nasal [place] 1 [place], Nares-Both, Daily, 0 Refill(s) Start Date: 07/22/21 Status: Ordered Ipratropium Nasal [place] 0.03% 2 [place], Nares-Both, BID, 0 Refill(s) Start Date: 07/22/21 [...] Daily, # 90 Each, 0 Refill(s), Pharmacy: [facility] [address] [facility], 162.9, cm, 10/03/21 7:40:00 CDT, Height, 61.798, kg, 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
--- OUTSIDE RECORDS SUMMARY | 2022-09-16 10:25 | XMS_ITS | Continuity of Care Document ---
Author Name Unknown Organization [facility] Address [address] [place] [address]- Care Team Providers Care Door To Door Sales Representative Name Role Phone DeloresJohn rothmanchristopher Henley Primary Care Physician [phone] Encounter 09/27/21 - 09/27/[address] [address]- Discharge Disposition: Discharged to Home or Self Care Attending Physician: João CANTU, Bety Rowe Allergies, Adverse Reactions, Alerts No Known Allergies [...] QBedtime, # 30 Tab, 3 Refill(s), Pharmacy: [facility] [address] [facility], 165, cm, 08/17/21 15:13:00 CDT, Height, 66, kg, 08/17/21 15:13:00 CDT, Weight Start Date: 09/02/21 Status: Ordered etodolac 300 mg oral capsule Take 1 Cap, PO, BID, # 21 Cap, 0 Refill(s), Pharmacy: [facility] [address] [facility], 165, cm, 08/17/21 15:13:00 CDT, Height, 66, kg, 08/17/21 15:13:00 CDT, Weight Start Date: 08/17/21 Status: Ordered Evista 60 mg oral tablet Take 1 Tab, PO, Daily, # 90 Tab, 3 Refill(s), Pharmacy: [facility] [address] [facility], 162, cm, 01/06/20 21:28:00 CDT, Height, 66, kg, 09/05/20 13:21:00 CDT, Weight Start Date: 03/11/21 Status: Ordered Fluticasone 50 mcg Nasal [place] 1 [place], Nares-Both, Daily, 0 Refill(s) Start Date: 07/22/21 Status: Ordered Ipratropium Nasal [place] 0.03% 2 [place], Nares-Both, BID, 0 Refill(s) Start Date: 07/22/21 [...] EG junction. 6sinus washing done under anesthetic Results Laboratory List Name Date Hemoglobin (HEMOGLOBIN) 09/27/21 Hemoglobin Most recent to oldest [Reference Range]: 1 Hemoglobin [11.7-16.1 gm/dL] 13.7 gm/dL (09/27/21 8:49 AM) Social History Social History Type Response Smoking Status Never smoked Sex
--- OUTSIDE RECORDS SUMMARY | 2022-09-16 10:25 | XMS_ITS | Continuity of Care Document ---
Author Name Unknown Organization [facility] Address [address] [place] [address]- Care Team Providers Care Assistant Printer Floor Covering Name Role Phone Myra Estrella Primary Care Physician Encounter 04/28/22 - 04/28/[address] [address]- Discharge Disposition: Discharged to Home or Self Care Attending Physician: Celine Jo NP Allergies, Adverse Reactions, Alerts No Known [...] Pain/Discomfort, # 40 Tab, 0 Refill(s), Pharmacy: [facility] [address] [facility], 162.56, cm, 10/02/21 13:45:00 CDT, [...] BID, # 21 Cap, 0 Refill(s), Pharmacy: [facility] [address] [facility], 165, cm, 08/17/21 15:13:00 CDT, Height, 66, kg, 08/17/21 15:13:00 CDT, Weight Start Date: 08/17/21 Status: Ordered Evista 60 mg oral tablet Take 1 Tab, PO, Daily, # 90 Tab, 0 Refill(s), Pharmacy: [facility] [address] [facility], 162.9, cm, 10/03/21 7:40:00 CDT, Height, 65.82, kg, 10/03/21 7:40:00 CDT, Weight Start Date: 03/11/22 Status: Ordered Fluticasone 50 mcg Nasal [place] 1 [place], Nares-Both, Daily, 0 Refill(s) Start Date: 07/22/21 Status: Ordered Ipratropium Nasal [place] 0.03% 2 [place], Nares-Both, BID, 0 Refill(s) Start Date: 07/22/21 [...] User Member Role: Family Physician Address: Address: [facility] [address] Name: Myra Estrella MD Position: Physician Member Role: Primary Care Physician Address: Address: [facility] [address] Care Team Related Persons Name: PETER JOHNSON Address: home [address] [place] [address]
--- OUTSIDE RECORDS SUMMARY | 2022-09-16 10:25 | XMS_ITS | Continuity of Care Document ---
Author Name Unknown Organization [facility] Address [address] [place] [address]- Care Team Providers Care Supervisor Heat Treating Name Role Phone Myra Estrella Primary Care Physician Encounter 04/09/22 - 04/09/22 [place] [address] [place] [address]- Encounter Diagnosis Other specified diseases of pancreas(Final) - Change in bowel habit(Final) - Discharge Disposition: Discharged to Home or [...] Pain/Discomfort, # 40 Tab, 0 Refill(s), Pharmacy: [facility] [address] [facility], 162.56, cm, 10/02/21 13:45:00 CDT, [...] BID, # 21 Cap, 0 Refill(s), Pharmacy: [facility] [facility] [address] [facility], 165, cm, 08/17/21 15:13:00 CDT, Height, 66, kg, 08/17/21 15:13:00 CDT, Weight Start Date: 08/17/21 Status: Ordered Evista 60 mg oral tablet Take 1 Tab, PO, Daily, # 90 Tab, 0 Refill(s), Pharmacy: [facility] [address] [facility], 162.9, cm, 10/03/21 7:40:00 CDT, Height, 65.82, kg, 10/03/21 7:40:00 CDT, Weight Start Date: 03/11/22 Status: Ordered Fluticasone 50 mcg Nasal [place] 1 [place], Nares-Both, Daily, 0 Refill(s) Start Date: 07/22/21 Status: Ordered Ipratropium Nasal [place] 0.03% 2 [place], Nares-Both, BID, 0 Refill(s) Start Date: 07/22/21 [...] Care team information Care Team Personnel Name: aSmeer Cortez MD Position: Non User Member Role: Family Physician Address: Address: [facility] [address] Name: Myra Estrella MD Position: Physician Member Role: Primary Care Physician Address: Address: [facility] [address] Care Team Related Persons Name: PETER JOHNSON Address: home [address]
--- OUTSIDE RECORDS SUMMARY | 2022-09-16 10:25 | XMS_ITS | Continuity of Care Document ---
Author Name Unknown Organization [facility] Address [address] [place] [address]- Care Team Providers Care Kiln Repairer Name Role Phone Myra Estrella Primary Care Physician [phone] Encounter 12/30/21 - 12/30/21 [address] [place] [address]- Discharge Disposition: Discharged to Home or Self [...] Pain/Discomfort, # 40 Tab, 0 Refill(s), Pharmacy: [facility] [address] [facility], 162.56, cm, 10/02/21 13:45:00 CDT, [...] BID, # 21 Cap, 0 Refill(s), Pharmacy: [facility] [address] [facility], 165, cm, 08/17/21 15:13:00 CDT, Height, 66, kg, 08/17/21 15:13:00 CDT, Weight Start Date: 08/17/21 Status: Ordered Fluticasone 50 mcg Nasal [place] 1 [place], Nares-Both, Daily, 0 Refill(s) Start Date: 07/22/21 Status: Ordered Ipratropium Nasal [place] 0.03% 2 [place], Nares-Both, BID, 0 Refill(s) Start Date: 07/22/21 [...] Personnel Name: Myra Estrella MD Address: Address: [facility] [address] [place] [address]
--- OUTSIDE RECORDS SUMMARY | 2022-09-16 10:25 | XMS_ITS | Continuity of Care Document ---
Author Name Unknown Organization [facility] Address [address] [place] [address]- Care Team Providers Care Skoog Operator Name Role Phone Myra Estrella Primary Care Physician Encounter 11/26/21 - 12/20/[address] [address]- Encounter Diagnosis Low back pain, unspecified(Final) - Discharge Disposition: Still a Patient Attending Physician: Viji DIAZ, Bryant Garcia Allergies, Adverse Reactions, Alerts No Known Allergies Assessment and Plan Future Scheduled Tests Radiology* MRI Abdomen w and w/o Contrast 12/30/21 Immunizations Given and Recorded Vaccine Date Status [...] Pain/Discomfort, # 40 Tab, 0 Refill(s), Pharmacy: [facility] [address] [facility], 162.56, cm, 10/02/21 13:45:00 CDT, [...] BID, # 21 Cap, 0 Refill(s), Pharmacy: [facility] [address] [facility], 165, cm, 08/17/21 15:13:00 CDT, Height, 66, kg, 08/17/21 15:13:00 CDT, Weight Start Date: 08/17/21 Status: Ordered Fluticasone 50 mcg Nasal [place] 1 [place], Nares-Both, Daily, 0 Refill(s) Start Date: 07/22/21 Status: Ordered Ipratropium Nasal [place] 0.03% 2 [place], Nares-Both, BID, 0 Refill(s) Start Date: 07/22/21 [...] year ago Sex Care Team Personnel Name: Delores DIAZ, Myra Henley Address: Address: [address]
--- OUTSIDE RECORDS SUMMARY | 2022-09-16 10:25 | XMS_ITS | Continuity of Care Document ---
Author Name Unknown Organization [facility] Address [address] [place] [address]- Care Team Providers Care Pest Control Operator Name Role Phone Myra Estrella Primary Care Physician Encounter 04/01/22 - 04/01/[address] [address]- Discharge Disposition: Discharged to Home or Self [...] Pain/Discomfort, # 40 Tab, 0 Refill(s), Pharmacy: [facility] [address] [facility], 162.56, cm, 10/02/21 13:45:00 CDT, [...] BID, # 21 Cap, 0 Refill(s), Pharmacy: [facility] [address] [facility], 165, cm, 08/17/21 15:13:00 CDT, Height, 66, kg, 08/17/21 15:13:00 CDT, Weight Start Date: 08/17/21 Status: Ordered Evista 60 mg oral tablet Take 1 Tab, PO, Daily, # 90 Tab, 0 Refill(s), Pharmacy: [facility] [address] [facility], 162.9, cm, 10/03/21 7:40:00 CDT, Height, 65.82, kg, 10/03/21 7:40:00 CDT, Weight Start Date: 03/11/22 Status: Ordered Fluticasone 50 mcg Nasal [place] 1 [place], Nares-Both, Daily, 0 Refill(s) Start Date: 07/22/21 Status: Ordered Ipratropium Nasal [place] 0.03% 2 [place], Nares-Both, BID, 0 Refill(s) Start Date: 07/22/21 [...] Range]: 1 Respiratory Rate [12-18 Br PM] 17 Br PM (04/01/22 2:05 PM) Pulse Rate [60-100 BPM] 64 BPM (04/01/22 2:05 PM) Blood Pressure [90-140/65-90 mmHg] 111/6 0mmHg (04/01/22 2:05 PM) Weight 61.798 kg (04/01/22 2:05 PM) Social History Social History Type Response Smoking Status Former smoker, quit more than 1 year ago Sex Patient Care team information Care Team Personnel Name: Sameer Cortez MD Position: Non User Member Role: Family Physician Address: Address: [facility] [address] [place] [address] Name: Myra Estrella MD Position: Physician Member Role: Primary Care Physician Address: Address: [facility] [address] Care Team Related Persons Name: PETER JOHNSON Address: [address] [address] [facility]
--- OUTSIDE RECORDS SUMMARY | 2022-09-16 10:26 | XMS_ITS | Continuity of Care Document ---
Author Name Unknown Organization [facility] Address [address] [place] [address]- Care Team Providers Care Frame Table Operator Name Role Phone Myra Estrella Primary Care Physician Encounter 06/11/22 - 06/11/[address] [address]- Discharge Disposition: Discharged to Home or Self Care Attending Physician: Maynor German DO Allergies, Adverse Reactions, Alerts No Known Allergies Assessment and Plan Future Scheduled Tests Radiology* MA Mammo Digital Screen bilat w brooklynn(NB) 06/25/22 Immunizations Given and Recorded Vaccine Date Status [...] Pain/Discomfort, # 40 Tab, 0 Refill(s), Pharmacy: [facility] [address] [facility], 162.56, cm, 10/02/21 13:45:00 CDT, [...] BID, # 21 Cap, 0 Refill(s), Pharmacy: [facility] [address] [facility], 165, cm, 08/17/21 15:13:00 CDT, Height, 66, kg, 08/17/21 15:13:00 CDT, Weight Start Date: 08/17/21 Status: Ordered Evista 60 mg oral tablet Take 1 Tab, PO, Daily, # 90 Tab, 0 Refill(s), Pharmacy: [facility] [address] [facility], 162.9, cm, 10/03/21 7:40:00 CDT, Height, 65.82, kg, 10/03/21 7:40:00 CDT, Weight Start Date: 03/11/22 Status: Ordered Fluticasone 50 mcg Nasal [place] 1 [place], Nares-Both, Daily, 0 Refill(s) Start Date: 07/22/21 Status: Ordered Ipratropium Nasal [place] 0.03% 2 [place], Nares-Both, BID, 0 Refill(s) Start Date: 07/22/21 [...] Daily, # 90 Each, 0 Refill(s), Pharmacy: [facility] [address] [facility], 162.9, cm, 10/03/21 7:40:00 CDT, Height, 61.798, kg, 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
--- OUTSIDE RECORDS SUMMARY | 2022-09-16 10:26 | XMS_ITS | Patient Health Record ---
Author Name Unknown Organization [facility] Care Team Providers Care Freight Adjuster Name Role Phone ORESTES BROWN Unavailable [phone] ABDULAZIZLORRAINE FARRELL Unavailable [phone] ALLERGIES No Known Allergies ENCOUNTERS from 1955 to 2022-09-16 Encounter Location Date Provider Diagnosis [facility] [address] [place], [place] [id number] Aug, MO[facility] S[facility] [address] [address] July, [facility] [address] [address] 14 Jun, 2022 [facility] Pancreatic cyst K86. 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 No Points 0 Interpretation Negative REASON FOR REFERRAL No Information VITAL SIGNS from 1955 to 2022-09-16 Temperature 97.0 degrees Fahrenheit Aug, Heart Rate 74 /min Aug, Respiratory Rate 16 /min Aug, Oximetry 96 % Aug, Weight 145 lbs Aug, Height 65 in Aug, BMI 24.13 kg/m2 Aug, Height-cm 165.10 cm Aug, Weight-kg 65.77 kg Aug, Blood pressure systolic 139 mm Hg Aug, Blood pressure diastolic 62 mm Hg Aug, MEDICATIONS Medication SIG (Take, Route, Frequency, Duration) Notes Start Date End Date Status Nadolol 40 MG TAKE 1 TABLET BY MOUTH EVERY DAY Oral for 90 Active Atorvastatin Calcium 20 MG TAKE 1 TABLET BY MOUTH EVERYDAY AT BEDTIME Oral for 90 Active amLODIPine Besylate 5 MG TAKE 1 TABLET B Y MOUTH EVERY DAY Oral for 90 Active Gabapentin 300 MG TAKE 1 CAPSULE BY MOUTH TWICE A DAY Oral for 30 Not-Taking Sertraline HCl 100 MG TAKE 1 TABLET BY MOUTH EVERY DAY Oral for 90 Active Calcium 600 MG 2 tabs Orally Twice a day Active Atrovent HFA 17 MCG/ACT 2 puffs Inhalati on two times daily Active methylPREDNISolone 4 MG PLEASE SEE ATTAC HED FOR DETAILED DIRECTIONS Oral for 6 Not-Taking Fluticasone Propionate 50 MCG/ACT Nasal for 90 Active Multi For Her - as directed Orally Active Donepezil HCl 5 MG TAKE 1 TABLET BY MOUTH AT BEDTIME Oral for 90 Active Raloxifene HCl 60 MG TAKE 1 TABLET BY MOUTH EVERY DAY Oral for 90 Active Pantoprazole Sodium 40 MG TAKE 1 TABLET BY MOUTH EVERY DAY Oral for 90 Active PROCEDURES from 1955 to 2022-09-16 Procedure Date Ordered Date Performed Result Body Sit e EGD 2022-09-08 2022-09-08 N/A RESULTS from 1955 to 2022-09-16 Component Value Reference Range Notes PT/INR Reviewed date:09/08/2022 12:38:20 Interpretation: Performing Lab:, [facility], [address] [place] [address] Notes/Report:PERFORMING LAB: [facility], [address] [place] [address] INR 1.1 0.8-1.2 Therapeutic Ran ge (Conventional) 1.5-3.0 Therapeutic Range (Intensive) 3.0-4.5 PROTIME 12.7 s 10.0-13.6 s Comprehensive Metabolic Pane l Reviewed date:09/08/2022 12:38:20 Interpretation: Performing Lab:, [facility], [address] [place] [address] Notes/Report:PERFORMING LAB: [facility], [address] [place] [address] A/G RATIO 1.4 1.1-2.3 ALBUMIN 4.4 g/dL 3.5-5.2 g/dL ALK PHOS 96 U/L 35-104 U/L ALT (SGPT) 8 U/L 10-35 U/L ANION GAP 10 mmol/L 7-14 mmol/L AST (SGOT) 26 U/L 10-35 U/L BILIRUBIN TOTAL 0.3 mg/dL 0.1-1.0 mg/dL BUN 26 mg/dL 6-23 mg/dL BUN/CREATININE RATIO 26.3 7-23 CALCIUM 9.9 mg/dL 8.6-10.2 mg/dL CHLORIDE 105 mmol/L 98-107 mmol/L CO2 26 mmol/L 22-29 mmol/L CREATININE 0.99 mg/dL 0.51-0.95 mg/dL GLOBULIN 3.1 g/dL 2.0-4.0 g/dL GLUCOSE 85 mg/dL 74-109 mg/dL POTASSIUM 3.9 mmol/L 3.5-5.0 mmol/L PROTEIN,TOTAL 7.5 g/dL 6.4-8.3 g/dL SODIUM 141 mmol/L 136-145 mmol/L Calprotectin F Reviewed date:04/16/2022 15:00:19 Interpretation: Performing Lab: Notes/Report: Calprotectin F CA 19-9 Reviewed date:04/16/2022 15:01:27 Interpretation: Performing Lab: Notes/Report: CA 19-9 MRI ABDOMEN W CONTRAST Reviewed date:01/03/2022 15:46:14 Interpretation: Performing Lab: Notes/Report: CA 19-9 Reviewed date:10/08/2021 10:58:39 Interpretation: Performing Lab: Notes/Report: CA 19-9 REASON FOR VISIT No Information MEDICAL (GENERAL) HISTORY Type Description Date Medical History Dilated pancreatic duct Surgical History APPENDIX Surgical History EGD Surgical History COLONOSCOPY MENTAL STATUS No Information ASSESSMENTS Encounter Date Diagnosis Assessment Notes Treatment Notes Treatment Clinical Notes 14 Jun, 2022 Pancreatic cyst (ICD-10 - K86.2) 13 Mar, 2022 Pancreatic cyst (ICD-10 - K86.2) 13 Mar, 2022 Dilated pancreatic duct (ICD-10 - K86.89) 11 Mar, 2022 Dilated pancreatic duct (ICD-10 - K86.89) 11 Mar, 2022 Altered bowel habits (ICD-10 - R19.4) Mar, Other 1. She had an M RI in December of 2021 that showed that the pancreatic dilation was stable. We reviewed findings of the report with the patient. 2. Repeat MRI recommended in six months from the last one, which is in June of 2022. Depending on the MRI findings in June, we can reevaluate the need for EUS. 3. will repeat C19-9. 4. Her altered bowel habits, I suspect it's because of Constipation with overflow, diarrhea. 5. Order Xray of abdomen to access stool burden and will check fecal Calprotectin 6. Follow up after her MRI. Visit was conducted using telehealth video conferencing services. Patient provided verbal consent to treatment using telehealth services. The visit lasted 15 minutes. Aug, Pancreatic cyst (ICD-10 - K86.2) Aug, Dilated pancreatic duct (ICD-10 - K86.89) Aug, Other 1. Dilated pancreatic duct 2. Pancreatic cyst - Differential diagnosis for these findings includes IPMN, mucinous cyst, serous pancreatic cyst, less likely malignancy - We will check CA 19-9 level - Recommend interval MRI abdomen with the without contrast and with MRCP in November for surveillance - If CA 19-9 is elevated and if repeat MRI remains concerning then an EUS can be performed - Patient understand and is agreeable to proceed. - I reviewed the MRI report with the patient in detail. Explained to her the possible differential diagnosis. Discussed risks and benefits of endoscopic ultrasound. At this time, will hold off on the EUS and proceed with surveillance MRI. PLAN OF TREATMENT Pending Tests Test Name Order Date Surgical Pathology Report 2022-09-08 Creatinine and eGFR 2022-07-04 XR ABDOMEN 1 VIEW 2022-04-02 Future Test Test Name Order Date MRI ABDOMEN W WO CONTRAST [id number] MRI ABDOMEN W CONTRAST [id number] Next Appt Details Provider Name:ORESTES BROWN, 05-27-17 10:15:00 AM, [address], [place], [address], Insurance Providers Payer Name Payer Address Payer Phone Insured Name Patient Relationship to Insured Coverage Start Date Coverage End Date Subscriber Number Group Number [employer] [facility] [address] [facility] [id number] [facility] [id number] NILDA JOHNSON Self - patient is the insured 2 [id number]
--- OUTSIDE RECORDS SUMMARY | 2022-09-16 10:26 | XMS_ITS | Continuity of Care Document ---
Author Name Unknown Organization [facility] Address [address] [place] [address] Phone Care Team Providers Care Mop Worker Name Role Phone Cheo DIAZ, PhD, Edu Unavailable Unavai lable Allergies, Adverse Reactions, Alerts Substance Reaction Status Criticality No Known Allergies Active No Inform ation Medications Medication Instructions Dosage Effective Dates (start - stop) Status Comments NORVASC (unknown strength) Not Available - Active LIPITOR (unknown strength) Not Available - Active CALCIUM (unknown strength) Not Available - Active ZYRTEC (unknown strength) Not Available - Active ZOLOFT (unknown strength) Not Available - Active PROTONIX (unknown strength) Not Available - Active MULTIVITAMINS (unknown strength) Not Available - Active DOXEPIN HCL (unknown strength) Not Available - Active ARICEPT (unknown strength) Not Available - Active Procedures Procedure Date OFFICE/OUTPATIENT VISIT EST Phone Office/Outpatient Visit,[facility] 2022 Advance Directives Directive Yes / No Effective Date File Name No Information Encounters Encounter Description Practice Location Reason(s) For Visit Diagnoses Date Provider Providers Copied on Encounter [facility], [address], [place], [id number], [place] tel:[phone] [facility] No Information Cheo Sorensen. [facility], [address], [place], [address], [place]. tel:[phone] OFFICE/OUTPAT IENT VISIT EST Phone [facility], [address], [place], [id number], [place] tel:[phone] [facility] No Information Cheo Sorensen. [facility], [address], [place], [address], [place]. tel:[phone] Referring Provider: Maria C [facility] [address] [place], [address]. tel:[phone] Office/Outpat ient Visit,[place], [place] [facility], [address], [place], [id number], [place] tel:[phone] [facility] Spinal stenosis, lumbar region with neurogenic claudication Cheo Sorensen. [facility], [address], [place], [address], [place]. tel:[phone] Referring Provider: Maria C [facility] [address] [place], [address]. tel:[phone] Family History Family Member Type Diagnosis Age At Onset No Information Payers Payer name Insurance type Covered constitution party [place] [id number] [place] [id number] Social History Type Description Quantity Date Captured Comments Alcohol Use Details Unknown Caffeine Use Details Unknown Tobacco Use Status No Information Smoking Status No Information Sex Female Chief Complaint And Reason For Visit No Information Reason For Referral Reason For Referral No Information Plan Of Treatment Date Type Action Status No Information History Of Present Illness Encounter Date Complaint History Of Prese nt Illness No Information Functional Status Date Functional Assessmen t No Information Instructions Date Instruction Additional Infor mation No Information Assessments Type Assessment Date No Information Patient Care Teams Name Effective Dates (start - stop) Status Members No Information
== END 2022-09-16 10:22 | disposition home or self-care (01) ==
PROVIDERS: Visit Provider Family Medicine
DX: M54.16 Radiculopathy, lumbar region (principal); M51.36 Other intervertebral disc degeneration, lumbar region
CPT/HCPCS: 62323; J0702; Q9966

== ENCOUNTER 2023-04-28 10:28 | Outpatient (CLI) | payer MEDICARE, OTHER, SELFPAY ==
--- OUTSIDE RECORDS SUMMARY | 2023-04-28 10:38 | XMS_ITS | Continuity of Care Document ---
Author Name Unknown Organization [facility] Address [address] [place] [address]- Care Team Providers Care Manufacturing Engineer Supervisor Name Role Phone Antelmo Crys Rowe Primary Care Physician Encounter 02/02/23 - 02/19/23 [address] [place] [address]- Encounter Diagnosis Encounter for other specified surgical aftercare(Final) - Spinal stenosis, lumbar region with neurogenic claudication(Final) - Discharge Disposition: Still a Patient Attending Physician: Roland Heller Allergies, Adverse Reactions, Alerts No Known Allergies [...] Pain/Discomfort, # 40 Tab, 0 Refill(s), Pharmacy: [facility] [address] [facility], 162.56, cm, 10/02/21 13:45:00 CDT, [...] mg oral tablet Take 1 Tab, PO, Bedtime, # 90 Tab, 3 Refill(s), Pharmacy: [facility] [facility] [address] [facility], 162.9, cm, 10/03/21 7:40:00 CDT, Height, 61.798, kg, 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, 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 Start Date: 09/02/22 Stop Date: 08/28/23 Status: Ordered etodolac 300 mg oral capsule Take 1 Cap, PO, BID, # 21 Cap, 0 Refill(s), Pharmacy: [place] [address] [facility], 165, cm, 08/17/21 15:13:00 CDT, Height, 66, kg, 08/17/21 15:13:00 CDT, Weight Start Date: 08/17/21 Status: Ordered Evista 60 mg oral tablet Take 1 Tab, PO, Daily, # 90 Tab, 3 Refill(s), Pharmacy: [place] [address] [facility], 162.9, cm, 10/03/21 7:40:00 CDT, Height, 61.798, kg, 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, 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 Start Date: 08/15/22 Status: Ordered Evista 60 mg oral tablet Take 1 Tab, PO, Daily, # 90 Tab, 0 Refill(s), Pharmacy: [facility], 162.9, cm, 10/03/21 7:40:00 CDT, Height, 65.82, kg, 10/03/21 7:40:00 CDT, Weight Start Date: 03/11/22 Status: Ordered Fluticasone 50 mcg Nasal [place] 1 [place], Nares-Both, Daily, 0 Refill(s) Start Date: 07/22/21 Status: Ordered Ipratropium Nasal [place] 0.03% 2 [place], Nares-Both, BID, 0 Refill(s) Start Date: 07/22/21 [...] Daily, # 90 Each, 0 Refill(s), Pharmacy: [facility], 162.9, cm, 10/03/21 7:40:00 CDT, Height, 61.798, kg, 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
--- OUTSIDE RECORDS SUMMARY | 2023-04-28 10:38 | XMS_ITS | Continuity of Care Document ---
Author Name Unknown Organization [facility] Address [address] [place] [address]- Care Team Providers Care Patient Service Rep Name Role Phone AntelmoCrys Soledad Primary Care Physician Encounter 10/16/22 - 10/16/22 [address] [place] [address]- Encounter Diagnosis Spondylolisthesis, lumbar region(Final) - Spondylosis without myelopathy or radiculopathy, lumbar region(Final) - Other specified deforming dorsopathies, lumbar region(Final) - Discharge Disposition: Discharged to Home or Self Care Attending Physician: Edu Grider MD Allergies, Adverse Reactions, Alerts No Known [...] Pain/Discomfort, # 40 Tab, 0 Refill(s), Pharmacy: [facility] [id number] [facility], 162.56, cm, 10/02/21 13:45:00 CDT, [...] Bedtime, # 90 Tab, 3 Refill(s), Pharmacy: [facility] [id number] [facility], 162.9, cm, 10/03/21 7:40:00 CDT, Height, 61.798, kg, 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, 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 Start Date: 09/02/22 Stop Date: 08/28/23 Status: Ordered etodolac 300 mg oral capsule Take 1 Cap, PO, BID, # 21 Cap, 0 Refill(s), Pharmacy: [facility] [address] [facility], 165, cm, 08/17/21 15:13:00 CDT, Height, 66, kg, 08/17/21 15:13:00 CDT, Weight Start Date: 08/17/21 Status: Ordered Evista 60 mg oral tablet Take 1 Tab, PO, Daily, # 90 Tab, 3 Refill(s), Pharmacy: [facility] [address] [facility], 162.9, cm, 10/03/21 7:40:00 CDT, Height, 61.798, kg, 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, 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 Start Date: 08/15/22 Status: Ordered Evista 60 mg oral tablet Take 1 Tab, PO, Daily, # 90 Tab, 0 Refill(s), Pharmacy: [id number], 162.9, cm, 10/03/21 7:40:00 CDT, Height, 65.82, kg, 10/03/21 7:40:00 CDT, Weight Start Date: 03/11/22 Status: Ordered Fluticasone 50 mcg Nasal [place] 1 [place], Nares-Both, Daily, 0 Refill(s) Start Date: 07/22/21 Status: Ordered Ipratropium Nasal [place] 0.03% 2 [place], Nares-Both, BID, 0 Refill(s) Start Date: 07/22/21 [...] # 90 Each, 0 Refill(s), [facility]acy: [id number], 162.9, cm, 10/03/21 7:40:00 CDT, Height, 61.798, kg, 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 DEMOGRAPHICS: 67 years. Female. INDICATION: back pain. COMPARISON: 02/11/2022. FINDINGS: 5 lumbar type vertebral bodies. Moderate left lateral lumbar curvature. No compression deformity. Discogenic endplate changes are most pronounced at L2/3. Lower lumbar facets are at least moderately degenerative. Degenerative disc changes are advanced at L2/3, moderate at L1/2 and L3/4, and less pronounced at remaining levels. Scattered atherosclerotic arterial calcified plaque noted. Lateral flexion and extension views also performed. With extension, 4 mm L3/4 retrolisthesis develops, which normalizes with flexion and neutral positioning. 7 mm L2/3 retrolisthesis in neutral position is unchanged with extension or flexion. IMPRESSION: 1. Although degenerative disc and facet changes without significant interval progression from prior. 2. Left lateral lumbar curvature. 3. 7 mm L2/3 retrolisthesis without evidence of segmental instability at this level. 4. Segmental instability is suspected at L3/4, with retrolisthesis developing in extended position. FINAL REPORT Dictated By: Peter Marroquin MD 10/16/2022 10:39 Assigned Physician: Peter Marroquin MD Reviewed and Electronically Signed By: Peter Marroquin MD 10/16/2022 10:43 Transcribed by: [facility] 10/16/2022 10:39 Technologist: MADELEINE Social History Social History Type Response Smoking Status Former smoker, quit more than 1 year ago Sex XR Lumbar spine GE 4 Views * Peter Marroquin MD: PERFORM, VERIFY Peter Marroquin MD: VERIFY, VERIFY Peter Marroquin MD: VERIFY Powerscribe, Self Correct: TRANSCRIBE Event Display: Report Authored Date: [id number] PROCEDURE: XR L-Spine 4+ Views. DEMOGRAPHICS: 67 years. Female. INDICATION: back pain. COMPARISON: 02/11/2022. FINDINGS: 5 lumbar type vertebral bodies. Moderate left lateral lumbar curvature. No compression deformity. Discogenic endplate changes are most pronounced at L2/3. Lower lumbar facets are at least moderately degenerative. Degenerative disc changes are advanced at L2/3, moderate at L1/2 and L3/4, and less pronounced at remaining levels. Scattered atherosclerotic arterial calcified plaque noted. Lateral flexion and extension views also performed. With extension, 4 mm L3/4 retrolisthesis develops, which normalizes with flexion and neutral positioning. 7 mm L2/3 retrolisthesis in neutral position is unchanged with extension or flexion. IMPRESSION: 1. Although degenerative disc and facet changes without significant interval progression from prior. 2. Left lateral lumbar curvature. 3. 7 mm L2/3 retrolisthesis without evidence of segmental instability at this level. 4. Segmental instability is suspected at L3/4, with retrolisthesis developing in extended position. FINAL REPORT Dictated By: Peter Marroquin MD 10/16/2022 10:39 Assigned Physician: Peter Marroquin MD Reviewed and Electronically Signed By: Peter Marroquin MD 10/16/2022 10:43 Transcribed by: [facility] 10/16/2022 10:39 Technologist: MADELEINE Patient Care team information Care Team Personnel Name: Sameer Cortez MD Position: Non User Member Role: Family Physician Address: Address: [facility] [address] [place] [address]- Name: Crys Rodriges NP Position: P II - PB Member Role: Primary Care Physician Address: Address: [facility] [address] [place] [address]- Care Team Related Persons Name: PETER JOHNSON Address: home [address] [place] [address] [facility]
--- OUTSIDE RECORDS SUMMARY | 2023-04-28 10:38 | XMS_ITS | Continuity of Care Document ---
Author Name Unknown Organization [facility] Address [address] [place] [address]- Care Team Providers Care Toll Collector Name Role Phone Crys Rodriges Primary Care Physician Encounter 01/20/23 - 01/20/[address] [address]- Discharge Disposition: Discharged to Home or Self Care Attending Physician: Myra Estrella MD Allergies, Adverse Reactions, Alerts No Known [...] Pain/Discomfort, # 40 Tab, 0 Refill(s), Pharmacy: [facility] [id number] [facility], 162.56, cm, 10/02/21 13:45:00 CDT, [...] Bedtime, # 90 Tab, 3 Refill(s), Pharmacy: [facility] [address] [facility], 162.9, cm, 10/03/21 7:40:00 CDT, Height, 61.798, kg, 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 ROOFER APPLICATOR, Weight Start Date: 09/02/22 Stop Date: 08/28/23 Status: Ordered etodolac 300 mg oral capsule Take 1 Cap, PO, BID, # 21 Cap, 0 Refill(s), Pharmacy: [facility] [address] [facility], 165, cm, 08/17/21 15:13:00 CDT, Height, 66, kg, 08/17/21 15:13:00 CDT, Weight Start Date: 08/17/21 Status: Ordered Evista 60 mg oral tablet Take 1 Tab, PO, Daily, # 90 Tab, 3 Refill(s), Pharmacy: [facility] [address] [facility], 162.9, cm, 10/03/21 7:40:00 CDT, Height, 61.798, kg, 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 ROOFER APPLICATOR, Weight Start Date: 08/15/22 Status: Ordered Evista 60 mg oral tablet Take 1 Tab, PO, Daily, # 90 Tab, 0 Refill(s), Pharmacy: [facility] [address] [facility], 162.9, cm, 10/03/21 7:40:00 CDT, Height, 65.82, kg, 10/03/21 7:40:00 CDT, Weight Start Date: 03/11/22 Status: Ordered Fluticasone 50 mcg Nasal [place] 1 [place], Nares-Both, Daily, 0 Refill(s) Start Date: 07/22/21 Status: Ordered Ipratropium Nasal [place] 0.03% 2 [place], Nares-Both, BID, 0 Refill(s) Start Date: 07/22/21 [...] Daily, # 90 Each, 0 Refill(s), Pharmacy: [facility] [id number] [facility], 162.9, cm, 10/03/21 7:40:00 CDT, Height, 61.798, kg, 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 ROOFER APPLICATOR, Weight Start Date: 05/25/22 Status: Ordered sertraline [...] User Member Role: Family Physician Address: Address: [facility] [address] Name: Crys Rodriges NP Position: P II - PB Member Role: Primary Care Physician Address: Address: [facility] [address] Care Team Related Persons Name: PETER JOHNSON Address: home [address] [facility]
--- OUTSIDE RECORDS SUMMARY | 2023-04-28 10:38 | XMS_ITS | Continuity of Care Document ---
Author Name Unknown Organization [facility] Address [address] [place] [address]- Care Team Providers Care Paper Cup Machine Operator Name Role Phone Crys Rodriges Primary Care Physician Encounter 12/03/22 - 12/03/[address] [address]- Discharge Disposition: Discharged to Home or Self [...] 40 Tab, 0 Refill(s), Pharmacy: [facility] [id number] [facility], 162.56, cm, 10/02/21 13:45:00 CDT, [...] Bedtime, # 90 Tab, 3 Refill(s), Pharmacy: [facility] [id number] [facility], 162.9, cm, 10/03/21 7:40:00 CDT, Height, 61.798, kg, 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 LOGISTICAL ENGINEER, Weight Start Date: 09/02/22 Stop Date: 08/28/23 Status: Ordered etodolac 300 mg oral capsule Take 1 Cap, PO, BID, # 21 Cap, 0 Refill(s), Pharmacy: [facility] [id number] [facility], 165, cm, 08/17/21 15:13:00 CDT, Height, 66, kg, 08/17/21 15:13:00 CDT, Weight Start Date: 08/17/21 Status: Ordered Evista 60 mg oral tablet Take 1 Tab, PO, Daily, # 90 Tab, 3 Refill(s), Pharmacy: [facility] [address] [facility], 162.9, cm, 10/03/21 7:40:00 CDT, Height, 61.798, kg, 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 LOGISTICAL ENGINEER, Weight Start Date: 08/15/22 Status: Ordered Evista 60 mg oral tablet Take 1 Tab, PO, Daily, # 90 Tab, 0 Refill(s), Pharmacy: [facility] [address] [facility], 162.9, cm, 10/03/21 7:40:00 CDT, Height, 65.82, kg, 10/03/21 7:40:00 CDT, Weight Start Date: 03/11/22 Status: Ordered Fluticasone 50 mcg Nasal [place] 1 [place], Nares-Both, Daily, 0 Refill(s) Start Date: 07/22/21 Status: Ordered Ipratropium Nasal [place] 0.03% 2 [place], Nares-Both, BID, 0 Refill(s) Start Date: [...] # 90 Each, 0 Refill(s), Pharmacy: [facility] [id number] [facility], 162.9, cm, 10/03/21 7:40:00 CDT, Height, 61.798, kg, 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 LOGISTICAL ENGINEER, Weight Start Date: 05/25/22 Status: Ordered sertraline [...] Member Role: Family Physician Address: Address: [facility] [address] Name: Crys Rodriges NP Position: P II - PB Member Role: Primary Care Physician Address: Address: [facility] [address] Care Team Related Persons Name: PETER JOHNSON Address: [address] [address] [facility] [place]
--- OUTSIDE RECORDS SUMMARY | 2023-04-28 10:38 | XMS_ITS | Continuity of Care Document ---
Author Name Unknown Organization [facility] Address [address] [place] [address]- Care Team Providers Care Community Services Officer Name Role Phone Antelmo Crys Soledad Primary Care Physician Encounter 02/20/23 - 03/20/23 [address] [place] [address]- Encounter Diagnosis Encounter for other specified surgical aftercare(Final) - Spinal stenosis, lumbar region with neurogenic claudication(Final) - Discharge Disposition: Discharged to Home or Self Care Attending Physician: Roland Heller Allergies, Adverse Reactions, [...] Pain/Discomfort, # 40 Tab, 0 Refill(s), Pharmacy: [facility] [address] [facility], 162.56, cm, 10/02/21 13:45:00 CDT, [...] Bedtime, # 90 Tab, 3 Refill(s), Pharmacy: [facility] [address] [facility], 162.9, cm, 10/03/21 7:40:00 CDT, Height, 61.798, kg, 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 WORSHIP DIRECTOR, Weight Start Date: 09/02/22 Stop Date: 08/28/23 Status: Ordered etodolac 300 mg oral capsule Take 1 Cap, PO, BID, # 21 Cap, 0 Refill(s), Pharmacy: [facility] [address] [facility], 165, cm, 08/17/21 15:13:00 CDT, Height, 66, kg, 08/17/21 15:13:00 CDT, Weight Start Date: 08/17/21 Status: Ordered Evista 60 mg oral tablet Take 1 Tab, PO, Daily, # 90 Tab, 3 Refill(s), Pharmacy: [facility] [address] [facility], 162.9, cm, 10/03/21 7:40:00 CDT, Height, 61.798, kg, 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 WORSHIP DIRECTOR, Weight Start Date: 08/15/22 Status: Ordered Evista 60 mg oral tablet Take 1 Tab, PO, Daily, # 90 Tab, 0 Refill(s), [facility]acy: [id number], 162.9, cm, 10/03/21 7:40:00 CDT, Height, 65.82, kg, 10/03/21 7:40:00 CDT, Weight Start Date: 03/11/22 Status: Ordered Fluticasone 50 mcg Nasal [place] 1 [place], Nares-Both, Daily, 0 Refill(s) Start Date: 07/22/21 Status: Ordered Ipratropium Nasal [place] 0.03% 2 [place], Nares-Both, BID, 0 Refill(s) Start Date: 07/22/21 [...] # 90 Each, 0 Refill(s), [facility]acy: [id number], 162.9, cm, 10/03/21 7:40:00 CDT, Height, 61.798, kg, 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 WORSHIP DIRECTOR, Weight Start Date: 05/25/22 Status: Ordered [...] Role: Family Physician Address: Address: [facility] [address] Name: Crys Rodriges NP Position: [facility] II - PB Member Role: Primary Care Physician Address: Address: [facility] [address] Care Team Related Persons Name: PETER JOHNSON Address: [address] [id number] [facility]
--- OUTSIDE RECORDS SUMMARY | 2023-04-28 10:38 | XMS_ITS | Continuity of Care Document ---
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, Weight Start Date: 09/02/22 Stop Date: 08/28/23 Status: Ordered etodolac 300 mg oral capsule Take 1 Cap, PO, BID, # 21 Cap, 0 Refill(s), Pharmacy: [facility] [address] [facility], 165, cm, 08/17/21 15:13:00 CDT, Height, 66, kg, 08/17/21 15:13:00 CDT, Weight Start Date: 08/17/21 Status: Ordered Evista 60 mg oral tablet Take 1 Tab, PO, Daily, # 90 Tab, 3 Refill(s), Pharmacy: [facility] [address] [facility], 162.9, cm, 10/03/21 7:40:00 CDT, Height, 61.798, kg, 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 VENDING MACHINE FILLER, Weight Start Date: 08/15/22 Status: Ordered Evista 60 mg oral tablet Take 1 Tab, PO, Daily, # 90 Tab, 0 Refill(s), Pharmacy: [facility] [address] [facility], 162.9, cm, 10/03/21 7:40:00 CDT, Height, 65.82, kg, 10/03/21 7:40:00 CDT, Weight Start Date: 03/11/22 Status: Ordered Fluticasone 50 mcg Nasal [place] 1 [place], Nares-Both, Daily, 0 Refill(s) Start Date: 07/22/21 Status: Ordered Ipratropium Nasal [place] 0.03% 2 [place], Nares-Both, BID, 0 Refill(s) Start Date: 07/22/21 [...] Daily, # 90 Each, 0 Refill(s), Pharmacy: [facility] [id number] [facility], 162.9, cm, 10/03/21 7:40:00 CDT, Height, 61.798, kg, 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 VENDING MACHINE FILLER, Weight Start Date: 05/25/22 Status: Ordered sertraline [...] Date Time Procedure Performing Provider Status 10/16/22 9:11 AM MRI L-Spine w/o Contrast Malick Warren; Auth (Verified) Notes: (MRI L-Spine w/o Contrast) Reason For Exam: lumbar stenosis with neurogenic claudication REPORT PROCEDURE: MRI L-Spine w/o Contrast. DEMOGRAPHICS: 67 years. Female. TECHNIQUE: Multiplanar magnetic resonance imaging performed without intravenous gadolinium. INDICATION: lumbar stenosis with neurogenic claudication. Additional history provided by the technologist is a lifting injury one year ago with chronic low back pain and right lower extremity tingling. The patient has a history of a laminectomy in September 2021. COMPARISON: Lumbar spine radiographs dated 02/11/2022 and a lumbosacral spine MRI dated 02/11/2022. Redemonstrated is an area of round T2 hyperintensity within the spleen of 2.7 x 3.1 cm in size. A small round foci of hyperintensity on coronal T2-weighted imaging occur in the right and left kidney.These range from a few millimeters up to the largest in the right upper renal pole at a centimeter in size. The patient has 5 lumbar type vertebrae, confirmed by correlation with the lumbar spine radiographic examination of 12/12/2020. Lower T11-S5 are visualized with a fairly prominent lumbar levo rotoscoliotic curvature present. Redemonstrated is retrolisthesis at L2-3, currently measuring approximately 7 mm. No definite anterolistheses or spondylolyses are appreciated. Multifocal endplate Schmorl's node formation is present involving at least T11, T12, L2, and L3. Juxta vertebral endplate type I marrow signal changes occur at L2-3 with type II changes present inferiorly at L3. There is right lateral wedging again present at L3. The intervertebral disc spaces demonstrate at least moderate narrowing at L1-2 and severe narrowing at all L2-3 with narrowing present mildly at L3-4 and L4-5. Loss of T2 signal is seen involving the L1-2, L2-3, and eccentrically L4-5 intervertebral disc spaces withL5-S1 disc space narrowing seen as well. L5-S1 demonstrates broad-based flattening of the usual concave disc contour. Disc material contactsand has minimal potential mass effect on the volar aspect of the thecal sac. Severe left facet arthropathy occurs. L4-5 demonstrates broad-based disc material to be present fairly prominently resulting in rather prominent mass effect on the volar aspect of the thecal sac. Bilateral foraminal extension is seen with moderate inferior foraminal fat effacement and stenosis bilaterally. The disc material may be a little more prominent centrally and anterior laterally on the left as well as in the left neural foramen. In combination with bilateral facet arthropathy a severe central acquired spinal canal stenosis pattern appears to be present. L3-4 demonstrates broad-based disc material to be present mild to moderately with asymmetric increased conspicuity anterior laterally on the left and extending into the left neural foramen perhaps more so than right. In combination with facet arthropathy a severe central acquired spinal canal stenos is pattern is present with moderate bilateral foraminal stenosis, left greater than right. L2-3 demonstrates a broad-based disc osteophyte complex to be present with moderate volar mass effect upon the thecal sac. Foraminal extension of the discussed by complex material is seen asymmetrically much more prominently on the right as opposed to left with severe right and [id number] left foraminal fat effacement and stenosis. L1-2 demonstrates a slight/mild underlying broad-based disc bulge and volar mass effect upon the thecal sac. No significant abnormal extradural mass effects are otherwise identified upon the thecal sac. The intrathecal contents, including the position and appearance of the conus medullaris at the L1-2 levelare unremarkable. IMPRESSION: 1. L2-3 retrolisthesis. 2. Prominent medial rotoscoliotic curvature lumbar spine. 3. Multifactorial severe central acquired spinal canal stenosis pattern involving L4-5 and L3-4. There is moderate bilateral foraminal stenosis at both levels. 4. L2-3 moderate broad-based disc osteophyte complex, asymmetrically more prominent anterior laterally on the right with severe right and mild left foraminal stenosis. 5. L1-2 slight/mild underlying broad-based disc bulge. 6. L5-S1 slight broad-based disc bulge versus disc osteophyte complex minimal thecal sac impingement. There are severe left-sided facet arthropathy. 7. Multilevel degenerative disc disease and/or degenerative spondylosis. 8. Stable splenic lesion. See further discussion from the patient's dedicated abdominal MRI examination of 07/28/2022. 9. Small simple cysts both kidneys, no further imaging follow-up is required of these findings. FINAL REPORT Dictated By: Gigi Winslow MD 10/16/2022 09:27 Assigned Physician: Gigi Winslow MD Reviewed and Electronically Signed By: Gigi Winslow MD 10/16/2022 09:47 Transcribed by: DYLON 10/16/2022 09:27 Technologist: [facility] Social History Social History Type Response Smoking Status Former smoker, quit more than 1 year ago Sex MR Lumbar spine WO contrast * Powerscribe, Self Correct: TRANSCRIBE Powerscribe, Self Correct: TRANSCRIBE, VERIFY Gigi Winslow MD: VERIFY, VERIFY Gigi Winslow MD: VERIFY Event Display: Report Authored Date: [id number] PROCEDURE: MRI L-Spine w/o Contrast. DEMOGRAPHICS: 67 years. Female. TECHNIQUE: Multiplanar magnetic resonance imaging performed without intravenous gadolinium. INDICATION: lumbar stenosis with neurogenic claudication. Additional history provided by the technologist is a lifting injury one year ago with chronic low back pain and right lower extremity tingling. The patient has a history of a laminectomy in September 2021. COMPARISON: Lumbar spine radiographs dated 02/11/2022 and a lumbosacral spine MRI dated 02/11/2022. Redemonstrated is an area of round T2 hyperintensity within the spleen of 2.7 x 3.1 cm in size. A small round foci of hyperintensity on coronal T2-weighted imaging occur in the right and left kidney.These range from a few millimeters up to the largest in the right upper renal pole at a centimeter in size. The patient has 5 lumbar type vertebrae, confirmed by correlation with the lumbar spine radiographic examination of 12/12/2020. Lower T11-S5 are visualized with a fairly prominent lumbar levo rotoscoliotic curvature present. Redemonstrated is retrolisthesis at L2-3, currently measuring approximately 7 mm. No definite anterolistheses or spondylolyses are appreciated. Multifocal endplate Schmorl's node formation is present involving at least T11, T12, L2, and L3. Juxta vertebral endplate type I marrow signal changes occur at L2-3 with type II changes present inferiorly at L3. There is right lateral wedging again present at L3. The intervertebral disc spaces demonstrate at least moderate narrowing at L1-2 and severe narrowing at all L2-3 with narrowing present mildly at L3-4 and L4-5. Loss of T2 signal is seen involving the L1-2, L2-3, and eccentrically L4-5 intervertebral disc spaces withL5-S1 disc space narrowing seen as well. L5-S1 demonstrates broad-based flattening of the usual concave disc contour. Disc material contactsand has minimal potential mass effect on the volar aspect of the thecal sac. Severe left facet arthropathy occurs. L4-5 demonstrates broad-based disc material to be present fairly prominently resulting in rather prominent mass effect on the volar aspect of the thecal sac. Bilateral foraminal extension is seen with moderate inferior foraminal fat effacement and stenosis bilaterally. The disc material may be a little more prominent centrally and anterior laterally on the left as well as in the left neural foramen. In combination with bilateral facet arthropathy a severe central acquired spinal canal stenosis pattern appears to be present. L3-4 demonstrates broad-based disc material to be present mild to moderately with asymmetric increased conspicuity anterior laterally on the left and extending into the left neural foramen perhaps more so than right. In combination with facet arthropathy a severe central acquired spinal canal stenos is pattern is present with moderate bilateral foraminal stenosis, left greater than right. L2-3 demonstrates a broad-based disc osteophyte complex to be present with moderate volar mass effect upon the thecal sac. Foraminal extension of the discussed by complex material is seen asymmetrically much more prominently on the right as opposed to left with severe right and vhqr-[id number]-exrlilmr left foraminal fat effacement and stenosis. L1-2 demonstrates a slight/mild underlying broad-based disc bulge and volar mass effect upon the thecal sac. No significant abnormal extradural mass effects are otherwise identified upon the thecal sac. The intrathecal contents, including the position and appearance of the conus medullaris at the L1-2 levelare unremarkable. IMPRESSION: 1. L2-3 retrolisthesis. 2. Prominent medial rotoscoliotic curvature lumbar spine. 3. Multifactorial severe central acquired spinal canal stenosis pattern involving L4-5 and L3-4. There is moderate bilateral foraminal stenosis at both levels. 4. L2-3 moderate broad-based disc osteophyte complex, asymmetrically more prominent anterior laterally on the right with severe right and mild left foraminal stenosis. 5. L1-2 slight/mild underlying broad-based disc bulge. 6. L5-S1 slight broad-based disc bulge versus disc osteophyte complex minimal thecal sac impingement. There are severe left-sided facet arthropathy. 7. Multilevel degenerative disc disease and/or degenerative spondylosis. 8. Stable splenic lesion. See further discussion from the patient's dedicated abdominal MRI examination of 07/28/2022. 9. Small simple cysts both kidneys, no further imaging follow-up is required of these findings. FINAL REPORT Dictated By: Gigi Winslow MD 10/16/2022 09:27 Assigned Physician: Gigi Winslow MD Reviewed and Electronically Signed By: Gigi Winslow MD 10/16/2022 09:47 Transcribed by: [facility] 10/16/2022 09:27 [place]ologist[place] [facility] Care team information Care Team Personnel Name: Sameer Cortez MD Position: Non User Member Role: Family Physician Address: Address: [facility] [address] [place] [address]- Name: Crys Rodriges NP Position: [facility] II - PB Member Role: Primary Care Physician Address: Address: [facility] [address] [place] [address]- Care Team Related Persons Name: PETER JOHNSON Address: home [address] [place] [address] [facility]
--- OUTSIDE RECORDS SUMMARY | 2023-04-28 10:38 | XMS_ITS | Continuity of Care Document ---
Author Name Unknown Organization [facility] Address [address] [place] [address]- Care Team Providers Care Yard Conductor Name Role Phone Crys Rodriges Primary Care Physician Encounter 12/22/22 - 12/22/[address] [address]- Discharge Disposition: Discharged to Home or Self [...] Pain/Discomfort, # 40 Tab, 0 Refill(s), Pharmacy: [facility] [address] [facility], 162.56, cm, 10/02/21 13:45:00 CDT, [...] Bedtime, # 90 Tab, 3 Refill(s), Pharmacy: [facility] [address] [facility], 162.9, cm, 10/03/21 7:40:00 CDT, Height, 61.798, kg, 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 INVESTMENT BROKER, Weight Start Date: 09/02/22 Stop Date: 08/28/23 Status: Ordered etodolac 300 mg oral capsule Take 1 Cap, PO, BID, # 21 Cap, 0 Refill(s), Pharmacy: [facility] [address] [facility], 165, cm, 08/17/21 15:13:00 CDT, Height, 66, kg, 08/17/21 15:13:00 CDT, Weight Start Date: 08/17/21 Status: Ordered Evista 60 mg oral tablet Take 1 Tab, PO, Daily, # 90 Tab, 3 Refill(s), Pharmacy: [facility] [address] [facility], 162.9, cm, 10/03/21 7:40:00 CDT, Height, 61.798, kg, 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 INVESTMENT BROKER, Weight Start Date: 08/15/22 Status: Ordered Evista 60 mg oral tablet Take 1 Tab, PO, Daily, # 90 Tab, 0 Refill(s), Pharmacy: [facility] [address] [facility], 162.9, cm, 10/03/21 7:40:00 CDT, Height, 65.82, kg, 10/03/21 7:40:00 CDT, Weight Start Date: 03/11/22 Status: Ordered Fluticasone 50 mcg Nasal [place] 1 [place], Nares-Both, Daily, 0 Refill(s) Start Date: 07/22/21 Status: Ordered Ipratropium Nasal [place] 0.03% 2 [place], Nares-Both, BID, 0 Refill(s) Start Date: 07/22/21 [...] Daily, # 90 Each, 0 Refill(s), Pharmacy: [facility] [id number] [facility], 162.9, cm, 10/03/21 7:40:00 CDT, Height, 61.798, kg, 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 INVESTMENT BROKER, Weight Start Date: 05/25/22 Status: Ordered sertraline [...] User Member Role: Family Physician Address: Address: [facility] [address] Name: Crys Rodriges NP Position: P II - PB Member Role: Primary Care Physician Address: Address: [facility] [address] Care Team Related Persons Name: PETER JOHNSON Address: home [address] [place]
--- OUTSIDE RECORDS SUMMARY | 2023-04-28 10:38 | XMS_ITS | Continuity of Care Document ---
Author Name Unknown Organization [facility] Address [address] [place] [address]- Care Team Providers Care Machine Design Engineer Name Role Phone AntelmoCrys Soledad Primary Care Physician [phone] Encounter 03/09/23 - 03/09/23 [address] [place] [address]- Encounter Diagnosis Cyst of pancreas(Final) - Discharge Disposition: Discharged to [...] Pain/Discomfort, # 40 Tab, 0 Refill(s), Pharmacy: [facility] [address] [facility], 162.56, cm, 10/02/21 13:45:00 CDT, [...] Bedtime, # 90 Tab, 3 Refill(s), Pharmacy: [facility] [address] [facility], 162.9, cm, 10/03/21 7:40:00 CDT, Height, 61.798, kg, 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 INSTALLER, Weight Start Date: 09/02/22 Stop Date: 08/28/23 Status: Ordered etodolac 300 mg oral capsule Take 1 Cap, PO, BID, # 21 Cap, 0 Refill(s), Pharmacy: [facility] [address] [facility], 165, cm, 08/17/21 15:13:00 CDT, Height, 66, kg, 08/17/21 15:13:00 CDT, Weight Start Date: 08/17/21 Status: Ordered Evista 60 mg oral tablet Take 1 Tab, PO, Daily, # 90 Tab, 3 Refill(s), Pharmacy: [facility] [address] [facility], 162.9, cm, 10/03/21 7:40:00 CDT, Height, 61.798, kg, 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 INSTALLER, Weight Start Date: 08/15/22 Status: Ordered Evista 60 mg oral tablet Take 1 Tab, PO, Daily, # 90 Tab, 0 Refill(s), Pharmacy: [facility] [address] [facility], 162.9, cm, 10/03/21 7:40:00 CDT, Height, 65.82, kg, 10/03/21 7:40:00 CDT, Weight Start Date: 03/11/22 Status: Ordered Fluticasone 50 mcg Nasal [place] 1 [place], Nares-Both, Daily, 0 Refill(s) Start Date: 07/22/21 Status: Ordered Ipratropium Nasal [place] 0.03% 2 [place], Nares-Both, BID, 0 Refill(s) Start Date: 07/22/21 [...] # 90 Each, 0 Refill(s), Pharmacy: [facility] [id number] [facility], 162.9, cm, 10/03/21 7:40:00 CDT, Height, 61.798, kg, 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 INSTALLER, Weight Start Date: 05/25/22 Status: Ordered sertraline [...] User Member Role: Family Physician Address: Address: [facility] [address] Name: Crys Rodriges NP Position: [facility] II - PB Member Role: Primary Care Physician Address: Address: [facility] [address] Care Team Related Persons Name: PETER JOHNSON Address: home [address] [facility]
--- OUTSIDE RECORDS SUMMARY | 2023-04-28 10:39 | XMS_ITS | Encounter Summary ---
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
--- OUTSIDE RECORDS SUMMARY | 2023-04-28 10:39 | XMS_ITS | Clinical Summary ---
Author Name Unknown Organization [facility] [facility] Address [place], [place] [address] Care Team Providers Care Stack Supervisor Name Role Phone Crys Rodriges NP Primary Care Provider + [phone] Allergies No known active allergies Medications Medication Sig Dispensed Refills Start Date End Date Status doxepin (SILENOR) 3 mg tablet TAKE 1 TABLET BY MOUTH EVERY DAY AT NIGHT 30 MINUTES BEFORE BEDTIME ON AN EMPTY STOMACH 0 07/24/2022 Active atorvastatin (LIPITOR) 20 mg tablet Take 20 mg by mouth at bedtime. 0 10/02/2021 Active sertraline (ZOLOFT) 100 mg tablet Take 100 mg by mouth once daily. 0 10/02/2021 Active raloxifene (Evista) 60 mg tablet Take 60 mg by mouth once daily. 0 Active donepeziL (ARICEPT) 5 mg tablet Take 5 mg by mouth once daily. 0 10/02/2021 Active cetirizine (ZYRTEC) 10 mg tablet Take 10 mg by mouth once daily if needed for Allergy Symptoms. 0 Active pantoprazole (PROTONIX) 40 mg delayed-release tablet Take 40 mg by mouth two times daily before meals. 0 07/11/2022 Active calcium carbonate/vitamin D2 (CALCIUM 600 + D ORAL) Take by mouth once daily. 0 Active sennosides-docusate (SENOKOT S) (8.6-50 mg) tabletIndications:C onstipation due to opioid therapy Take 1-4 Tablets by mouth two times daily. 30 Tablet 0 12/17/2022 Active acetaminophen (TYLENOL EXTRA STRGTH) 500 mg tabletIndications:A cute post-operative pain Take 1-2 Tablets (500-1,000 mg) by mouth every 8 hours if needed for Pain. Max acetaminophen dose: 4000mg in 24 hrs. 50 Tablet 0 12/17/2022 Active oxyCODONE (ROXICODONE) 5 mg immediate release tabletIndications:A cute post-operative pain Take 0.5 Tablets (2.5 mg) by mouth every 6 hours if needed for Pain (for severe pain.). 15 Tablet 0 12/17/2022 Active ibuprofen (ADVIL; MOTRIN) 400 mg tabletIndications:A cute post-operative pain Take 1 Tablet (400 mg) by mouth every 6 hours if needed for Pain. 30 Tablet 0 12/17/2022 Active methocarbamoL (ROBAXIN) 500 mg tabletIndications:A cute post-operative pain Take 1.5 Tablets (750 mg) by mouth every 6 hours if needed for Muscle Spasm. 20 Tablet 0 12/17/2022 Active WalkerIndications:S lucian stenosis, lumbar region, with neurogenic claudication Walker with front wheels for home use for 3 months. 1 Each 0 12/17/2022 Active Active Problems Problem Noted Date Diagnosed Date Spinal stenosis, lumbar jae on, with neurogenic claudication 12/16/2022 Depression 12/16/2022 Esophagitis 12/16/2022 Hyperlipidemia 12/16/2022 Hypertension 12/16/2022 ?Dementia 12/16/2022 Bronchiectasis 03/31/2021 Overview: Cause: Unknown (nodular bronchiectasis); Sinusitis Location/#lobes: RUL but also RML, ling, both LL (minimal) BL FEV1: 2.39 (104%) PsA (y/n): N NTM (y/n): Remote MAC Rx Airway clearance: Accapella Chr Azithro (y/n): No Chronic cough 11/22/2019 Encounters Date Type Department Care Team Description 04/07/2023 Transcribe Orders [facility] [address] [place] [address] Tanner Mir MD from Last 3 Months Social History Tobacco Use Types Packs/Day Years Used Date Smoking Tobacco: Former Cigarettes Smokeless Tobacco: Never Tobacco Cessation:Counseling Given: Not Answered Social Connections Answer Date Recorded Frequency of Communication with Friends and Fami ly Not on file 07/22/2022 Sex and Gender Information Value Date Recorded Sex Assigned at Not on file Gender Identity Not on file Sexual Orientation Not on file Obstetrics History Last Filed Vital Signs Vital Sign Reading Time Taken Comments Blood Pressure 110/47 12/18/2022 7:51 AM CDT Pulse 60 12/18/2022 7:48 AM CDT Temperature 36.8 ??C (98.3 ??F) 12/18/2022 7:48 AM CD T Respiratory Rate 16 12/18/2022 7:48 AM CDT Oxygen Saturation 97% 12/18/2022 7:48 AM CDT Inhaled Oxygen Concentration - - Weight 62.1 kg (136 lb 14.4 oz) 023 12:00 PM CDT Height 162.6 cm (5' 4) 12/16/2022 12:0 0 PM CDT Body Mass Index 23.5 12/16/2022 12:00 PM CDT Plan of Treatment Upcoming Encounters Date Type Department Care Team (Late st Contact Info) Description 04/28/2023 11: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 Office Visit [facility] [address] [place] [address] Tanner Mir MD [address] [place] [address] Arrived Health Maintenance Due Date Last Done Comments Pneumococcal series for age 65+ (1 of 2 - PCV) 1960 Tdap 1965 Depression screening for age 12+ 1966 BMI (ht and wt on same day) for age 18+ 1972 Hepatitis C screening for ag e 18-79 1972 Tetanus booster 1974 Colonoscopy through age 75 07/01/1999 Lipids for age 45-75 07/01/1999 Mammogram for age 45-75 07/01/1999 Zoster (shingles) series for age 50+ (1 of 2) 2004 DEXA/DXA scan for age 65+ 07/01/2019 COVID-19 vaccine series (2022-24 season) 2022 07/22/2021, 12/18/2020, 06/07/2020, Additional history exists Influenza for age 65+ 11/21/2022 Procedures Procedure Name Priority Date/Time Associated Diagnosis Comments AMB EPIDURAL STEROID INJECTION Routine 04/28/2023 8:31 AM MECHANICAL ENGINEERING MANAGER Spinal stenosis of lumbar region with neurogenic claudication from Last 3 Months Advance Directives Latest Code Status on File Code Status Date Activated Date Inactivated Comments Full Code 12/16/2022 6:37 PM 12/18/2022 1:29 PM Question Answer Comments Code Status Discussion: Unable to Assess Preferences, Provider to review later Care Teams Stack Supervisor Relationship Specialty Start Date End Date Crys Rodriges NP [address] [facility] [address] [place] [address] PCP - General 11/26/22
--- OUTSIDE RECORDS SUMMARY | 2023-04-28 10:39 | XMS_ITS | Continuity of Care Document ---
Author Name Unknown Organization [facility] Address [address] [place] [address] Phone Care Team Providers Care Coal Mill Operator Name Role Phone Cheo DIAZ, PhD, Edu Unavailable Unavai lable Allergies, Adverse Reactions, Alerts Substance Reaction Status Criticality No Known Allergies Active No Inform ation Medications Medication Instructions Dosage Effective Dates (start - stop) Status Comments Medrol (Mahendra) 4 mg tablets in a dose pack take by Oral route as directed per package instructions - Active NORVASC (unknown strength) Not Available - Active [...] Not Available - Active Procedures Procedure Date Physician Telephone Evaluation 5-10 Min Postop Followup Visit Lami, Facetectomy/Foraminotomy, Lumbar ( Stenosis) Lami, Facetectomy/Foraminotomy - Additio nal Level(s) - PA Lami, Facetectomy/Foraminotomy, Lumbar ( Stenosis) Lami, Facetectomy/Foraminotomy - Additio nal Level(s) OFFICE/OUTPATIENT VISIT EST Phone OFFICE/OUTPATIENT VISIT EST Phone Office/Outpatient Visit,New, [facility] 2022 Advance Directives Directive Yes / No Effective Date File Name No Information Encounters Encounter Description Practice Location Reason(s) For Visit Diagnoses Date Provider Providers Copied on Encounter [facility], [address], [place], [place], [id number], [place] tel:[phone] [facility] No Information 4 Cheo Sorensen. [facility], [address], [place], [address], [place]. tel:[phone] Physician Telephone Evaluation 5-10 Min [facility], [address], [place], [id number], [place] tel:[phone] [facility] No Information 4 Teddy Watkins. [facility], [address], [place], [place], [id number] , [place]. tel:[phone] Referring Provider: [facility] [address] [place], [address]. tel:[phone] [facility], [address], [place], [place], [id number], [place] tel:[phone] [facility] Encounter for other specified surgical aftercare 3 Teddy Watkins. [facility], [address], [place], [place], [id number] , [place]. tel:[phone] Referring Provider: Cliff Christianson [facility] [address] [place], [address]. tel:[phone] [facility], [address], [place], [place], [id number], [place] tel:[phone] [facility] No Information 3 Cheo Sorensen. [facility], [address], [place], [address], [place]. tel:[phone] [facility], [address], [place], [place], [id number], [place] tel:[phone] [facility] No Information 3 Teddy Watkins. [facility], [address], [place], [place], [id number] , [place]. tel:[phone] Referring Provider: Maria C Gordon [facility] [address] [place], [address]. tel:[phone] [facility], [address], [place], [id number], [place] tel:[phone] [facility] No Information 3 Cheo Sorensen. [facility], [address], [place], [address], [place]. tel:[phone] Referring Provider: Maria C Gordon [facility] [address] [place], [address]. tel:[phone] OFFICE/OUTPAT IENT VISIT EST Phone [facility], [address], [place], [id number], [place] tel:[phone] [facility] No Information 3 Cheo Sorensen. [facility], [address], [place], [address], [place]. tel:[phone] Referring Provider: Maria C Gordon [facility] [address] [facility], [place], [address]. tel:[phone] OFFICE/OUTPAT IENT VISIT EST Phone [facility], [address], [place], [id number], [place] tel:[phone] [facility] No Information 3 Cheo Sorensen. [facility], [address], [place], [address], [place]. tel:[phone] Referring Provider: Maria C Gordon [facility] [address] [place], [address]. tel:[phone] Office/Outpat ient Visit,New, [facility], [address], [place], [place], [id number], [place] tel:[phone] [facility] Spinal stenosis, lumbar region with neurogenic claudication 3 Cheo Sorensen. [facility], [address], [place], [address], [place]. tel:[phone] Referring Provider: Maria C Gordon [facility] [address] [place], [address]. tel:[phone] Family History Family Member Type Diagnosis Age At Onset No Information Payers Payer name Insurance type Covered green party ID Authordanny forrester(s) Medicare MB [id number] A[employer] [id number] Social History Type Description Quantity Date Captured Comments Sex Female Smoking Status No Information Chief Complaint And Reason For Visit No Information Reason For Referral Reason For Referral No Information History Of Present Illness Encounter Date Complaint History Of Prese nt Illness No Information Functional Status Date Functional Assessmen t No Information Instructions Date Instruction Additional Infor mation No Information Assessments Type Assessment Date No Information Patient Care Teams Name Effective Dates (start - stop) Status Members No Information
--- OUTSIDE RECORDS SUMMARY | 2023-04-28 10:39 | XMS_ITS | Encounter Summary ---
Author Name Unknown Organization [facility] Address [address] [place] [address] Care Team Providers Care Skeet Operator Name Role Phone Crys Rodriges PA-C Primary Care Provider [phone] Reason for Visit * Auth/Cert (Routine) Specialty Diagnoses / Procedures Referred By Fred t Referred To Contact Diagnoses Pancreatic Cyst Procedures NM EGD INTRMURAL NEEDLE ASPIR/BIOP ALTERED ANATOMY NM EDG US EXAM SURGICAL ALTER STOM DUODENUM/JEJUNUM Endo - Endoscopic Ultrasound, Indicated procedures Referral ID Status Reason Start Date Expiration Date Visits Re quested Visits Authorized [id number] 1 1 Encounter Details Date Type Department Care Team Description 09/08/2022 11:46 AM CDT Anesthesia Event [facility] [address] [place] [address] Erni Mcmillan MD [address] [place] [address] Stefan Guzman MD [address] [place] [address] Anesthesia Record Procedure Summary Procedure Name Responsible Anesthesiologist Anesthesia Start Time Anesthesia Stop Time Endo - EGD with Dilatation and Gastric Body and Atnrum Bx r/o H.Erin Laguerre MD 09/08/22 1146 09/08/22 1210 Events Date Time Event Comment 09/08/2022 1125 1146 An Start 1146 An Start Data 1210 an stop data 1210 An Stop Meds Name Total propofol 500mg/50mL inf 135.68 mg 0.9% NaCl infusion 200 mL * Agents Name Supplemental O2 * Blood No blood administrations on file. 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 Sexual Orientation Straight 04/05/2023 11 :00 AM EMPLOYEE RELATIONS REPRESENTATIVE Job Start Date Occupation Industry Not on file Not on file Not on file documented as of this encounter Last Filed Vital Signs Vital Sign Reading Time Taken Comments Blood Pressure - - Pulse 61 09/08/2022 12:10 PM CDT Temperature - - Respiratory Rate - - Oxygen Saturation - - Inhaled Oxygen Concentration - - Weight - - Height - - Body Mass Index - - documented in this encounter OR Notes * Anesthesia Postprocedure Evaluation - Erin Mcmillan MD - 09/08/2022 12:10 PM CDT Patient: [facility] Procedure(s): Endo - EGD with Dilatation and Gastric Body and Atnrum Bx r/o H.phylori Anesthesia Type: MAC Last vitals Vitals Value Taken Time BP 128/51 09/08/22 1009 Temp 36.3 ??C (97.4 ??F) 09/08/22 1009 Pulse 61 09/08/22 1210 Resp 18 09/08/22 1009 SpO2 99 % 09/08/22 1009 Anesthesia Post Evaluation Patient location during evaluation: Endoscopy Patient participation: patient participated Level of consciousness: awake Pain management: adequate Airway patency: patent Anesthetic complications: no PONV present: no Cardiovascular status: hemodynamically stable Respiratory status: spontaneous ventilation and nasal cannula Hydration status: euvolemic Discharge(d) when criteria met * Anesthesia Preprocedure Evaluation - Erin Mcmillan MD - 09/08/2022 11:22 AM CDT Images from the original note were not included. Anesthesia Pre-Op Evaluation History of Present Illness: See H&P. No Known Allergies Prior to Admission Medications Last Dose amLODIPine (NORVASC) 5 MG tablet 09/07/2022 atorvastatin (LIPITOR) 20 MG tablet 09/07/2022 cetirizine (ZYRTEC) 10 MG tablet 09/07/2022 donepezil (ARICEPT) 5 MG tablet 09/07/2022 doxepin (SINEQUAN) 10 MG capsule 09/07/2022 fluticasone NASAL (FLONASE) 50 MCG/ACT nasal spray 09/07/2022 nadolol (CORGARD) 40 MG tablet 09/07/2022 pantoprazole (PROTONIX) 40 MG injection 09/07/2022 sertraline (ZOLOFT) 100 MG tablet 09/07/2022 Current Facility-Administered Medications Medication Dose Route Frequency Provider Last Rate Last Admin ??? 0.9% NaCl infusion Intravenous Continuous Lisbeth Williamson ARNP ??? ondansetron HCl (ZOFRAN) injection 4 mg Intravenous 60 Min Pre-Procedure Lisbeth Williamson ARNP Inpatient Beta Aspen Administrations (last 72 hours) None Anesthesia ROS/Medical History Anticoagulant/Antiplatelet Therapy: Review of anticoagulant/antiplatelet is negative.. Patient/Family Anesthetic History: Review of patient/family anesthetic history is negative.. Patient Anesthetic History: Family Anesthetic History: Cardiovascular: Positive for: hypertension. EKG reviewed Pulmonary: H/O Pulmonary MAC, resolved. COPD, Asthma per pulmonology note.. Positive for: tobacco use (QUIT 2009), former tobacco use. Gastrointestinal: Heartburn. No N/V. No GERD per pt.. Renal: Review of renal system is negative.. Endocrine: Review of endocrine system is negative.. Neurological: Positive for: chronic back pain (Lumbar). Psychiatric/Mental State: Positive for: depression. Other: Review of other system is negative.. Past medical history was reviewed.Nursing notes were reviewed.NPO status reviewed. NPO Status Date of Last Liquid: 09/07/22 Time of last liquid consumption: 2129 Date of Last Solid Food: 09/07/22 Time of last solid food consumption: 1700 Tobacco Use ??? Smoking status: Never ??? Smokeless tobacco: Never Substance and Sexual Activity Drug Use Not on file Physical Exam BP: 128/51 (09/08 1008) HR: 61 (09/08 1008) Respiratory Rate: 18 (09/08 1008) SpO2: 99 % (09/08 1008) Temp: 36.3 ??C (97.4 ??F) (09/08 1008) Height: 167.6 cm (5' 6) (09/08 1008) Weight: 61.2 kg (135 lb) (09/08 1008) Body mass index is 21.79 kg/m??. Airway: Mallampati: II.TM distance: >3 FB.Neck ROM: full. Dental: No notable dental hx. Cardiovascular: Cardiovascular exam normal. Pulmonary: Pulmonary exam normal. Other Findings: Most Recent Lab Results (last 30 days) CBC No results for input(s): WBC, RBC, HGB, HCT, MCV, MCH, MCHC, RDW, PLT, NRBCABS in the last 720 hours. Basic Metabolic Panel Recent Labs 09/08/22 1026 NA 141 K 3.9 CL 105 CO2 26 GLU 85 BUN 26* CREATININE 0.99* CA 9.9 ANIONGAP 10 BCR 26.3* OSMOLALITY 296* EGFRNAA 62* Most Recent Lab Results (last 72 hours) Type & Screen No results for input(s): ABORH, LABANTI, ABSCREENGEL in the last 72 hours. (if applicable) No results for input(s): HCGSCREEN, URHCG, POCURHCG in the last 72 hours. Most Recent Lab Results (last 24 hours) POC Glucose No results for input(s): POCGMD, POCGLU in the last 24 hours. Diagnostic/Imaging Results Anesthesia Plan ASA Score: 3 Plan: MAC. Induction: Postop Analgesia: Informed Consent: Anesthetic plan, postop analgesia plan, and risks discussed with patient and spouse. Anesthesia options and risks explained to patient, All questions answered, Patient (or parent/guardian) appears to have understood our discussion and Consent obtained. documented in this encounter Plan of Treatment Not on file documented as of this encounter Visit Diagnoses Not on filedocumented in this encounter Administered Medications Inactive Administered Medications - up to 3 most recent administrations Medication Order MAR Action Action Date Dose Rate Site 0.9% NaCl infusion at 75 mL/hr, Intravenous, CONTINUOUS, Starting on Thu09/08/22 at 1030, For 60 days, Pre-op New Bag 09/08/2022 11:46 AM CDT 100 mL/hr propofol 500 MG/50ML IV infusion Intravenous, as needed, Starting on Thu09/08/22 at 1153, Anesthesia Intra-op New Bag 09/08/2022 11:56 AM CDT 100 mcg/kg/min 36.72 mL/hr Given 09/08/2022 11:53 AM CDT 50 mg documented in this encounter Care Teams Skeet Operator Relationship Specialty Start Date End Date Crys Rodriges PA-C [address] [place] [address] PCP - General Urgent Care 09/08/22 documented as of this encounter
--- OUTSIDE RECORDS SUMMARY | 2023-04-28 10:39 | XMS_ITS | Clinical Summary ---
Author Name Unknown Organization [facility] Address [address] [place] [address] Phone Care Team Providers Care Turntable Man Name Role Phone Crys Rodriges [place] Primary Care Provider [phone] Source Comments This disclosure is being made pursuant to the Care Everywhere program,applicable federal and state laws, and may not contain all informationavailable regarding this patient.[facility] Practices Allergies No known active allergies Medications Medication Sig Dispensed Refills Start Date End Date Status calcium carbonate/vitamin D3 (CALCIUM 600 + D PO) Take 2 tablets by mouth 2 times daily. 0 04/04/2005 Active multivitamin with iron (TAB-A-HERBERTH with IRON) tablet Take 1 tablet by mouth daily. 0 04/04/2005 Active atorvastatin 20 mg tablet Take 20 mg by mouth daily at bedtime. 0 10/27/2019 Active nadolol 40 mg tablet Take 40 mg by mouth daily. 0 01/13/2019 Active pantoprazole 40 mg delayed release tablet Take 40 mg by mouth daily. 0 11/12/2019 Active amLODIPine 5 mg tablet Take 5 mg by mouth daily. 0 03/25/2020 Active raloxifene 60 mg tablet Take 60 mg by mouth daily. 0 02/08/2020 Active SERTraline 100 mg tablet Take 100 mg by mouth daily. 0 03/05/2020 Active IPRATROPIUM 0.03 % nasal sprayIndications:Vaso motor rhinitis USE 1 SPRAY INTO BOTH NOSTRILS 2 TIMES DAILY. 90 mL 3 03/27/2022 Active fluticasone (FLONASE) 50 mcg/Actuation nasal sprayIndications:Non- seasonal allergic rhinitis due to pollen USE 1 SPRAYS IN EACH NOSTRIL DAILY 48 mL 3 03/27/2022 Active donepezil (ARICEPT) 5 mg tablet Take 5 mg by mouth daily at bedtime. 0 02/28/2022 Active cetirizine (ZyrTEC) 10 mg tablet Take 10 mg by mouth daily. 0 Active melatonin 3 mg tablet Take 3 mg by mouth daily at bedtime. 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 Encounters Date Type Department Care Team Description 04/26/2023 Refill Medicine Specialty Clinic: Pulmonary [address] [place] [address] Erick Daniels MD from Last 3 Months Immunizations Name Administration Dates Next Due COVID-19, mRNA 12+ yo (PFIZE R) 30mcg/0.3mL 12/18/2020,06/07/2020,05/17/2020 Influenza 12/16/2012,11/28/2011 Influenza, MDCK quadrivalent PF 12/31/2016 Influenza, PF 12/27/2017, 7,01/04/2016,2014,12/16/2013,12/16/2012,11/28/2011,1 Influenza, Quadrivalent Adjuvanted PF 11/26/2020 Influenza, high dose quadrivalent 11/06/2019 Influenza, quadrivalent 12/16/2013 Influenza, quadrivalent PF 01/04/2016,01/18/2015 Influenza, unspecified 01/27/2019,12/27/2017 Novel Influenza H1N1 01/10/2009 Novel Inluenza H1N1, unspecified 01/10/2009 Pneumococcal Conjugate, PCV1 3 (Prevnar 13) 03/19/2020 Pneumococcal Polysaccharide, PPSV23 (Pneumovax 23) 03/25/2021,04/12/2015 Td, adult unspecified 06/01/2006 Tdap 06/10/2016 Zoster, recombinant (Shingrix) 9,08/23/2018,05/30/2018,2018 Family History Medical History Relation Comments Heart Disease Brother 1 High Cholesterol Brother 1 Cancer Brother 2 Heart Disease Brother 2 Hypertension Brother 3 Dementia Other Brother 3 Dementia High Cholesterol Brother 4 Heart Disease Father High Cholesterol Father Hypertension Father Heart Disease Mother High Cholesterol Mother Hypertension Mother Heart Disease Son 1 Hypertension Son 2 Son High Cholesterol Son 3 Relation Status Comments Brother 1 Brother 2 Brother 3 Brother 4 Father Mother Son 1 Son 2 Son 3 Social History Tobacco Use Types Packs/Day Years Used Date Smoking Tobacco: Former Cigarettes 1 30 Q uit: 11/21/2001 Smokeless Tobacco: Former Alcohol Use Standard Drinks/Week Comments Not Currently 0 (1 standard drink = 0.6 oz pur e alcohol) Sex and Gender Information Value Date Recorded Sex Assigned at Female 03/25/2020 12:24 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 Gender Identity Female 03/25/2020 12:24 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 Sexual Orientation Straight 03/25/2020 12 :24 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 Last Filed Vital Signs Vital Sign Reading Time Taken Comments Blood Pressure 137/70 04/24/2022 11:37 AM 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 Pulse 68 04/24/2022 11:37 AM 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 Temperature 35.7 ??C (96.3 ??F) 04/24/2022 11:[address] Respiratory Rate 16 04/01/2021 3:03 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 Oxygen Saturation 100% 04/01/2021 3:03 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 Inhaled Oxygen Concentration - - Weight 62 kg (136 lb 11 oz) 04/24/2022 11:37 AM 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 Height 161.3 cm (5' 3.5) 04/24/2022 11:37 AM CS T Body Mass Index 23.83 04/24/2022 11:37 AM 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 Plan of Treatment Health Maintenance Due Date Last Done Comments Annual Physical Visit 1957 HCV Screening 1972 Lipid Disorder Screening 07/01/[address] Colonography 1999 Colonoscopy 1999 Colorectal Screening 1999 FIT-DNA 1999 FIT 1999 FOBT 1999 Flex Sigmoidoscopy 1999 RSV Vaccine (1 - 1-dose 60+ series) 2014 Osteoporosis Screening (DXA Bone Density) 2019 Influenza Vaccine: Seasonal (#1) 10/21/2022 12/02/2021, 11/26/2020, 11/06/2019, Additional history exists [id number] Vaccine ( season) 2022 12/21/2021, 07/22/2021, 12/18/2020, Additional history exists Tetanus Diphtheria Pertussis (2 - Td or Tdap) 06/10/2026 06/10/2016, 06/01/2006 Zoster Vaccine Completed 08/23/2018, 05/2018, 05/30/2018, Additional history exists Pneumococcal Vaccine Completed 03/25/2021, 03/19/2020, 04/12/2015 Advance Directives For more information, please contact: [phone] Documents on File Type Date Recorded 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
--- OUTSIDE RECORDS SUMMARY | 2023-04-28 10:39 | XMS_ITS | Encounter Summary ---
Author Name Unknown Organization [facility] Address [address] [place] [address] Care Team Providers Care Reimbursement Auditor Name Role Phone Crys Rodriges PA-C Primary Care Provider [phone]- [phone] Reason for Visit * Auth/Cert (Routine) Specialty Diagnoses / Procedures Referred By Fred t Referred To Contact Diagnoses Pancreatic Cyst Procedures AL EGD INTRMURAL NEEDLE ASPIR/BIOP ALTERED ANATOMY AL EDG US EXAM SURGICAL ALTER STOM DUODENUM/JEJUNUM Endo - Endoscopic Ultrasound, Indicated procedures Referral ID Status Reason Start Date Expiration Date Visits Re quested Visits Authorized [id number] 1 1 Encounter Details Date Type Department Care Team Description 09/08/2022 9:52 AM CDT - 09/08/2022 1:42 PM CDT Hospital Encounter [facility] Procedural Pre Post [address] [id number] Ny Monge MD [address] [place] [address] Discharge Disposition: Home - Discharge to Home or Self Care Social History Tobacco Use Types Packs/Day Years Used Date Smoking Tobacco: Never Smokeless Tobacco: Never Tobacco Cessation:Counseling Given: Not Answered Sex and Gender Information Value Date Recorded Sex Assigned at Not on file Gender Identity Female 04/05/2023 11:00 AM CAMP BOSS Sexual Orientation Straight 04/05/2023 11 :00 AM CAMP BOSS Job Start Date Occupation Industry Not on file Not on file Not on file documented as of this encounter Last Filed Vital Signs Vital Sign Reading Time Taken Comments Blood Pressure 110/57 09/08/2022 12:50 PM CDT Pulse 56 09/08/2022 12:50 PM CDT Temperature 36.3 ??C (97.4 ??F) 09/08/2022 10:09 AM C DT Respiratory Rate 16 09/08/2022 12:50 PM CDT Oxygen Saturation 98% 09/08/2022 12:50 PM CDT Inhaled Oxygen Concentration - - Weight 61.2 kg (135 lb) 09/08/2022 10:09 AM CDT Height 167.6 cm (5' 6) 09/08/2022 10:09 AM CDT Body Mass Index 21.79 09/08/2022 10:09 AM CDT documented in this encounter Discharge Instructions * Discharge Instructions* Yenifer Alba RN - 09/08/2022 1:23 PM CDT Images from the original note were not included. Learning About Monitored Anesthesia Care (MAC) What is monitored anesthesia care? Monitored anesthesia care (MAC) means that an anesthesia specialist will care for you during your procedure. The specialist will make sure that you get the level of anesthesia you need to be comfortable. They'll also help keep you safe. They can change the type of anesthesia if needed. And they canhelp with any breathing trouble or other problems. MAC is most often done when higher doses of sedative medicines are planned. So some people use the term MAC to describe sedation that makes you fall completely asleep. What happens before surgery? An anesthesia specialist will talk to you before the surgery. The specialist might ask about your health, past surgeries, medicine you take, and your family history, and your feelings about the surgery. They will help you decide if MAC is right for you. You will get an IV, which lets medicine into your vein through a tube. You may get: A sedative or anxiety medicine to help you relax. Pain medicine. It can prevent pain during the surgery. You might also get a shot to make the area near the surgery numb. You will get a list of things to do to help you prepare for your surgery. You will learn about whento stop eating and drinking. If you take medicine, you will learn what you can and can't take before surgery. You will be asked to sign a form that says you understand the risks of anesthesia. Before you sign it, your doctor will talk with you about sedation with MAC. Your doctor may talk about other types of anesthesia as well. You will learn about the risks and benefits of each type. You may be told that the doctor may need to change from MAC to general anesthesia during surgery tokeep you comfortable and safe. Many people are nervous before they have surgery. Ask your doctor about ways to relax. These may include relaxation exercises or medicine. What are the risks of anesthesia? Major side effects aren't common. But all types of anesthesia have some risk. Your risk depends on your overall health. It also depends on the type of anesthesia you have and how you respond to it. Serious but rare risks include breathing problems, heart attack, stroke, and a bad reaction to the medicine. Some health conditions increase the risk of problems. Your doctor will find out about any health problems you have that may affect your care. Your doctor or nurse will closely watch your vital signs during surgery. This includes checking your breathing, blood pressure, and heart rate. This may help you avoid problems from anesthesia. What can you expect after having MAC? Right after the surgery, you will be in the recovery room. Nurses will make sure you are safe and comfortable. You may feel some of the effects of sedation with MAC for several hours. If you had local or regional anesthesia, you may feel numb and have less feeling in part of your body. It may also take a few hours for you to be able to move and control your muscles as usual. If you had local anesthesia along with MAC, you may feel some pain and discomfort as the anestheticwears off. Tell someone if you have pain. Pain medicine works better if you take it before the paingets bad. If your sedation with MAC was switched to general anesthesia during surgery, you may be confused. Or it may be hard to think clearly. This is normal. It may take some time before the effects are completely gone. For minor surgeries, you may go home the same day. For other surgeries, you may stay in the hospital. Your doctor will check on your recovery from the anesthesia. Your doctor will answer any questions you may have. Don't do anything for 24 hours that requires attention to detail. This includes going to work or school, making important decisions, and signing any legal documents. It takes time for the medicine effects to completely wear off. For your safety, do not drive or operate any machinery that could be dangerous until the medicine wears off and you can think clearly and react easily. Follow-up care is a kinney part of your treatment and safety. Be sure to make and go to all appointments, and call your doctor if you are having problems. It's also a good idea to know your test resultsand keep a list of the medicines you take. Where can you learn more? Scan the QR code or Go to the Search Medical Library option found under the Resources tab in [employer] [email or web address]. If you do not have access to [employer], you can visit [email or web address] and select SpotterRF from the menu on the left. Enter V730 in the search box to learn more about Learning About Monitored Anesthesia Care (MAC). Not on [employer]? Go to [email or web address] and click the Sign Up Now link to request an activation code. Current as of: January 09, 2022 Content Version: 13.6 ?? Onit. Care instructions adapted under license by your healthcare professional. This care instruction is for use with your licensed healthcare professional. If you have questions about a medical condition or this instruction, always ask your healthcare professional. Onit disclaims any warranty or liability for your use of this information. Endoscopic Ultrasound (Oral): What to Expect At Home Your Recovery After you have an endoscopic ultrasound--a test to look for problems in the stomach, liver, gallbladder, and other organs--you will stay at the hospital or clinic for 1 to 2 hours. This will allow the medicine to wear off. You will be able to go home after your doctor or nurse checks to make sure you are not having any problems. You may have a sore throat for a day or two after the test. This care sheet gives you a general idea about what to expect after the test. How can you care for yourself at home? Activity Rest as much as you need to after you go home. You should be able to go back to your usual activities the day after the test. Diet Follow your doctor's directions for eating after the test. Drink plenty of fluids (unless your doctor has told you not to). Medicines If you have a sore throat the day after the test, use an [id number]-pzigqtc spray to numb your throat. Other instructions Ask your doctor when you can drive again. Do not sign legal documents or make major decisions until the medicine effects are gone and you canthink clearly. The anesthesia medicine can make it hard for you to fully understand what you are agreeing to. Follow-up care is a kinney part of your treatment and safety. Be sure to make and go to all appointments, and call your doctor if you are having problems. It's also a good idea to know your test resultsand keep a list of the medicines you take. When should you call for help? Call 911 anytime you think you may need emergency care. For example, call if: You passed out (lost consciousness). You have trouble breathing. Call your doctor now or seek immediate medical care if: You are vomiting. You have new or worse belly pain. You have a fever. You cannot pass stools or gas. Watch closely for any changes in your health, and be sure to contact your doctor if: You do not get better as expected. Current as of: August 26, 2021 Content Version: 13.6 ?? Onit. Care instructions adapted under license by your healthcare professional. This care instruction is for use with your licensed healthcare professional. If you have questions about a medical condition or this instruction, always ask your healthcare professional. Onit disclaims any warranty or liability for your use of this information. * Attachments The following attachments cannot be sent through Care Everywhere. * Ultrasound: Endoscopic (Oral): Post-op (Bangladeshi) documented in this encounter Medications at Time of Discharge Medication Sig Dispensed Refills Start Date End Date amLODIPine (NORVASC) 5 MG tablet Take 5 mg by mouth daily. 0 atorvastatin (LIPITOR) 20 MG tablet Take 20 mg by mouth daily. 0 cetirizine (ZYRTEC) 10 MG tablet Take 10 mg by mouth daily. 0 donepezil (ARICEPT) 5 MG tablet Take 5 mg by mouth nightly. 0 doxepin (SINEQUAN) 10 MG capsule Take 3 mg by mouth nightly. 0 fluticasone NASAL (FLONASE) 50 MCG/ACT nasal spray 1 spray by Nasal route daily. to each nostril 0 nadolol (CORGARD) 40 MG tablet Take 40 mg by mouth daily. 0 sertraline (ZOLOFT) 100 MG tablet Take 100 mg by mouth daily. 0 documented as of this encounter H&P Notes * Ny Monge MD - 09/08/2022 11:13 AM CDT H & P Subjective: Patient presents for outpatient EUS with possible FNA for pancreatic cyst. She had an MRI abdomen with MRCP on 07/28/2022 that showed abnormal pancreatic duct dilation, slowly progressive concerning for IPMN. Additional nonspecific cystic lesion along the margin of the pancreatic head which is grossly unchanged. See full report. CA 19-9 from 04/09/2022 was within normal limits. Patient denies any symptoms of abdominal pain, unintentional weight loss, nausea or vomiting. Does report altered bowel habits. Denies any family history of colon cancer. Of note she alternates Tylenol and ibuprofen for chronic back pain. Denies any anticoagulation. Objective: General: No acute distress, lying comfortably in bed Lungs: Decreased breath sounds at bases Heart: S1, S2 Abdomen: Soft, nontender, nondistended Neuro: Awake alert and oriented. Assessment and plan: 1. Abnormal pancreatic duct dilation 2. Pancreatic cyst - Discussed procedure of endoscopic ultrasound in detail with the patient including FNA/FNB. Discussed risk of bleeding, infection, perforation, pancreatitis. Discussed the possibility of need for repeat procedure at a tertiary care facility. Patient understands and is agreeable to proceed. Medication to be Used for Sedation: propofol (DIPRIVAN) injection IV ASA Physical Status Classification: ASA 3 - A patient with severe systemic disease Mallampati Classification (click on link to view picture) Mallampati class: II (hard and soft palate, upper portion of tonsils anduvula visible) Sedation Plan: I have discussed in detail the anesthetic plan, planned medications, alternatives, procedures and risks (including monitoring, pain management, post-op care, blood transfusions, adverse reactions, AZ, CVA, organ damage and .) Questions were answered. Patient or legal guardian consents to proceed. I have interviewed and examined the patient. I have reviewed the pre-procedure assessment. There are no significant changes which affect the risk of the planned procedure. The chart has been reviewedand patient reassessed immediately prior to the procedure. Informed Consent: I have explained in a language understandable to the patient or substitute decision-maker: ?? The procedure the patient is having and why they need it. ?? The possible risks of this procedure. ?? Reasonable alternatives to this procedure, the relevant risks, benefits and uncertainties related to each alternative. ?? The significant risks and problems specific to this patient. I have given the patient/substitute decision-maker an opportunity to: ?? Ask questions about any of the above information. ?? Raise any other concerns. I believe the patient/substitute decision-maker understood the above information. Ny Monge MD 09/08/2022 11:14 AM documented in this encounter Plan of Treatment Not on file documented as of this encounter Procedures Procedure Name Priority Date/Time Associated Diagnosis Comments PATHOLOGY/TISSUE SPECIMEN Timed 09/08/2022 12:04 PM CDT Endo - Ultrasound Endoscopic Upper 09/08/2022 11:45 AM CDT Pancreatic Cyst Case Notes H&P ??Cpt 79891, [id number] [employer] [id number] EKG 12-LEAD Routine 09/08/2022 10:43 AM CDT PROTIME-INR STAT 09/08/2022 10:26 AM CDT COMPREHENSIVE METABOLIC PANEL STAT 09/08/2022 10:26 AM CDT ENDOSCOPIC ULTRASOUND (UPPER) Routine 09/08/2022 9:57 AM CDT documented in this encounter Results * Pathology/Tissue Specimen (09/08/2022 12:04 PM CDT) Pathology STOMACH STRUCTURE / Unknown 09/08/2022 12:04 PM CDT Comment:Pre-op diagnosis: Pancreatic Cyst Narrative [facility] - 09/09/2022 10:53 AM CDT CASE: [id number] PATIENT: FREEDOM SETH CLINICAL HISTORY/DIAGNOSIS: Pancreatic cyst. SPECIMEN SUBMITTED: Gastric body and antrum biopsy; r/o H. pylori. Performed at [facility], [address] [place] [address] ??[id number] SURGICAL PATHOLOGY REPORT ?Specimen No.: [id number] DIAGNOSIS: Stomach, biopsy: - Fragments of gastric oxyntic mucosa with mild chemical gastritis/reactive gastropathy. - H. pylori microorganisms are not identified. GROSS DESCRIPTION: Received in formalin labeled Freedom Seth and Gastric body and antrum biopsy consists of one irregular fragment of calderon tissue, measuring 7 mm in greatest diameter. ??Entirely submitted in A1. ??(MAG/jlc) MICROSCOPIC DESCRIPTION: Microscopic examination performed. ??(WY/jlc) Final Diagnosis performed by Levi Elmore MD Electronically signed 09/09/2022 10:42:38AM Ny Monge MD PATHOLOGY/CYTOLOGY O RDERABLES [facility] * EKG 12-lead (09/08/2022 10:43 AM CDT) 09/08/2022 10:4 3 AM CDT Narrative [facility] - 09/13/2022 12:57 PM CDT EKG REPORT Result Name ?Result ??Units ?------ ??----- Heart Rate ?62 ?bpm AL Interval ?182 ?ms Frontal Chisholm:P ?50 ?deg QRS Duration ?95 ?ms QT Interval ?442 ?ms QT Corrected ? 449 ?ms Frontal Chisholm: Mean QRS: ?-13 ?deg Frontal Chisholm: Terminal 40 ms. ?? 68 ?deg Frontal Chisholm: Terminal 40 ms. ??-39 ?deg Frontal Chisholm: T ? 45 ?deg Frontal Chisholm: ST ?70 ?deg ? ... Sinus rhythm... Electronically signed by: Siomara Barton 09-13-2022 12:57:36 Procedure Note Siomara Barton MD - 09/13/2022 EKG REPORT Result Name Result Units ------ ----- Heart Rate 62 bpm AL Interval 182 ms Frontal Chisholm:P 50 deg QRS Duration 95 ms QT Interval 442 ms QT Corrected 449 ms Frontal Chisholm: Mean QRS: -13 deg Frontal Chisholm: Terminal 40 ms. 68 deg Frontal Chisholm: Terminal 40 ms. -39 deg Frontal Chisholm: T 45 deg Frontal Chisholm: ST 70 deg ... Sinus rhythm... Electronically signed by: Siomara Barton 09-13-2022 12:57:36 Lisbeth LEIVA ECG ORDERABLES Performing Organization Address City/State/[facility] Co de Phone Number [facility] * Protime-Inr (09/08/2022 10:26 AM CDT) Pathologist [facility] Protime 12.7 10.0 - 13.6 s 09/08/2022 10:58 AM [facility] INR 1.1 0.8 - 1.2 09/08/2022 10:58 AM [facility] Comment:Therapeutic Range (C onventional) 1.5-3.0 Therapeutic Range (Intensive) 3.0-4.5 Plasma BLOOD SPECIMEN / Unknown 09/08/2022 10:26 AM CDT 09/08/2022 10:28 AM CDT Lisbeth Williamson DAMAGE PREVENTION COORDINATOR LAB BLOOD ORDERABL ES [facility] [address] [place], [place] [phone] [address] * (ABNORMAL) Comprehensive metabolic panel (09/08/2022 10:26 AM CDT) Pathologist [facility] Sodium 141 136 - 145 mmol/L 09/08/2022 11:10 AM [facility] Potassium 3.9 3.5 - 5.0 mmol/L 09/08/2022 11:10 AM [facility] Chloride 105 98 - 107 mmol/L 09/08/2022 11:10 AM [facility] CO2 26 22 - 29 mmol/L 09/08/2022 11:10 AM [facility] Glucose 85 74 - 109 mg/dL 09/08/2022 11:10 AM [facility] BUN 26(H) 6 - 23 mg/dL 09/08/2022 11:10 AM [facility] Creatinine 0.99(H) 0.51 - 0.95 mg/dL 09/08/2022 11:10 AM [facility] Calcium 9.9 8.6 - 10.2 mg/dL 09/08/2022 11:10 AM [facility] Total Protein 7.5 6.4 - 8.3 g/dL 09/08/2022 11:10 AM [facility] Albumin 4.4 3.5 - 5.2 g/dL 09/08/2022 11:10 AM [facility] Bilirubin Total 0.3 0.1 - 1.0 mg/dL 09/08/2022 11:10 AM [facility] Alkaline Phosphatase 96 35 - 104 U/L 09/08/2022 11:10 AM [facility] AST 26 10 - 35 U/L 09/08/2022 11:10 AM [facility] ALT 8(L) 10 - 35 U/L 09/08/2022 11:10 AM [facility] Anion Gap 10 7 - 14 mmol/L 09/08/2022 11:10 AM [facility] BUN/Creatinine Ratio 26.3(H) 7 - 23 09/08/2022 11:10 AM [facility] Osmolality Calculated 296(H) 275 - 295 mosm/kg 09/08/2022 11:10 AM [facility] Globulin 3.1 2.0 - 4.0 g/dL 09/08/2022 11:10 AM [facility] A/G Ratio 1.4 1.1 - 2.3 09/08/2022 11:10 AM [facility] Creatinine Based eGFR 62(L) >90 mL/min/[1. 73_m2] 09/08/2022 11:10 AM [facility] Comment: GFR 60-90 Mild decreased GFR. CKD-EPI 2020 formula used to calculate eGFR, effective [id number] Serum 09/08/2022 10:2 6 AM CDT 09/08/2022 10:28 AM CDT Lisbeth LEIVA LAB BLOOD ORDERABL ES [id number] [place], [place] [phone] [address] * Endoscopic ultrasonography (Upper) (09/08/2022 9:57 AM CDT) Anatomical Region Laterality Modality Endoscopy Lisbeth LEIVA GI PROCEDURE ORDER CHU documented in this encounter Visit Diagnoses Not on filedocumented in this encounter Administered Medications Inactive Administered Medications - up to 3 most recent administrations Medication Order MAR Action Action Date Dose Rate Site 0.9% NaCl infusion at 75 mL/hr, Intravenous, CONTINUOUS, Starting on Thu09/08/22 at 1030, For 60 days, Pre-op New Bag 09/08/2022 11:46 AM CDT 100 mL/hr documented in this encounter Active and Recently Administered Medications Times are shown in CDT. Continuous Medication Order 09/06/2022 09/07/2022 09/08/2022 0.9% NaCl infusion at 75 mL/hr, Intravenous, CONTINUOUS, Starting on Thu09/08/22 at 1030, For 60 days, Pre-op 1146 (New Bag - Prov ider: Erin Mcmillan MD)1208 (Anesthesia Volume Adjustment - Provider: Erin Mcmillan MD)1601 (Due: Stopped) documented in this encounter Care Teams Reimbursement Auditor Relationship Specialty Start Date End Date Crys Rodriges PA-C [address] [facility] [place] [place] [address] PCP - General Urgent Care 09/08/22 documented as of this encounter
--- OUTSIDE RECORDS SUMMARY | 2023-04-28 10:39 | XMS_ITS | Encounter Summary ---
Author Name Unknown Organization [facility] Address [address] [place] [id number] Care Team Providers Care Dental Ceramist Assistant Name Role Phone Crys Rodriges PA-C Primary Care Provider +1- [phone] Reason for Visit * Auth/Cert (Routine) Specialty Diagnoses / Procedures Referred By Fred lynch Referred To Contact Diagnoses Pancreatic Cyst Procedures DC EGD INTRMURAL NEEDLE ASPIR/BIOP ALTERED ANATOMY DC EDG US EXAM SURGICAL ALTER STOM DUODENUM/JEJUNUM Endo - Endoscopic Ultrasound, Indicated procedures Referral ID Status Reason Start Date Expiration Date Visits Re quested Visits Authorized [id number] 1 1 Encounter Details Date Type Department Care Team Description 09/08/2022 10:00 AM CDT Ancillary Procedure WLA Procedural Pre Post [address] [phone] Lisbeth Williamson ARNP [address] [place], [place] [phone] Ny Monge MD [address] [place], [place] [phone] Social History Tobacco Use Types Packs/Day Years Used Date Smoking Tobacco: Never Smokeless Tobacco: Never Sex and Gender Information Value Date Recorded Sex Assigned at Not on file Gender Identity Female 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 Sexual Orientation Straight 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 Job Start Date Occupation Industry Not on file Not on file Not on file documented as of this encounter Plan of Treatment Not on file documented as of this encounter Procedures Procedure Name Priority Date/Time Associated Diagnosis Comments ENDOSCOPIC ULTRASOUND (UPPER) Routine 09/08/2022 9:57 AM CDT documented in this encounter Results * Endoscopic ultrasonography (Upper) (09/08/2022 9:57 AM CDT) Anatomical Region Laterality Modality Endoscopy Lisbeth LEIVA GI PROCEDURE ORDER CHU documented in this encounter Visit Diagnoses Not on filedocumented in this encounter Care Teams Dental Ceramist Assistant Relationship Specialty Start Date End Date Crys Rodriges PA-C [address] [place] [address] PCP - General Urgent Care 09/08/22 documented as of this encounter
--- OUTSIDE RECORDS SUMMARY | 2023-04-28 10:39 | XMS_ITS | Encounter Summary ---
Author Name Unknown Organization [facility] Address [address] [place] [address] Care Team Providers Care Aircraft Armament Mechanic Name Role Phone Crys Rodriges PA-C Primary Care Provider [phone]- [phone] Reason for Referral * MRI/CAT Scan (Routine) - Authorization Not Needed Specialty Diagnoses / Procedures Referred By Contac t Referred To Contact Radiology Diagnoses Pancreatic cyst Procedures MRI Abdomen w wo Contrast Ny Monge MD [address] [place] [address] Referral ID Status Reason Start Date Expiration Date Visits Requested Visits Authorized [id number] Authorization Not Needed 3 09/18/2024 1 1 [facility] Reason for Visit * MRI/CAT Scan (Routine) - Authorization Not Needed Specialty Diagnoses / Procedures Referred By Contkathie lynch Referred To Contact Radiology Diagnoses Pancreatic cyst Procedures MRI Abdomen w wo Contrast Ny Monge MD [address] [place] [address] Referral ID Status Reason Start Date Expiration Date Visits Requested Visits Authorized [id number] Authorization Not Needed 3 09/18/2024 1 1 Encounter Details Date Type Department Care Team Description 04/12/2023 10:22 AM [facility] - 04/12/2023 11:59 PM [facility] Hospital Encounter [facility] [address] [place] [address] Ny Monge MD [address] [place], [place] [address] Pancreatic cyst Discharge Disposition: Home - Discharge to Home or Self Care Social History Tobacco Use Types Packs/Day Years Used Date Smoking Tobacco: Never Smokeless Tobacco: Never Sex and Gender Information Value Date Recorded Sex Assigned at Not on file Gender Identity Female 04/05/2023 11:00 AM [facility] Sexual Orientation Straight 04/05/2023 11 :00 AM [facility] Job Start Date Occupation Industry Not on file Not on file Not on file documented as of this encounter Medications at Time of Discharge [...] daily. 0 documented as of this encounter Plan of Treatment Not on file documented as of this encounter Procedures Procedure Name Priority Date/Time Associated Diagnosis Comments MRI ABDOMEN W WO CONTRAST Routine 04/12/2023 11:35 AM [facility] Pancreatic cyst CREATININE POC STAT 04/12/2023 10:25 AM [facility] documented in this encounter Results * MRI Abdomen w wo Contrast (04/12/2023 11:35 AM [facility]) Anatomical Region Laterality Modality Abdomen Magnetic Resonan ce 04/12/2023 10:5 1 AM [facility] Impressions 04/12/2023 11:51 AM [facility] Multifocal pancreatic cystic lesions largest measuring up to 2.5 cm. Differential diagnosis led by side-branch IPMN in absence of history of pancreatitis. Mild dilatation of the main pancreatic duct raises the minor possibility of mixed main and side-branch duct type. Given this feature, EUS/FNA may be warranted. In absence of this, six-month follow-up is recommended for surveillance according to ACR recommendations. COMMENTS: Consistent with the [employer]'s Incidental Findings Committee white paper (J Am Ak[employer] Radiol 2018): Any incidental renal lesion less than 1 cm or classified as too small to characterize, or any incidental cystic renal lesion characterized as simple-appearing, is likely benign. No follow-up imaging is recommended for these lesions per consensus recommendations based on imaging criteria. THIS DOCUMENT HAS BEEN ELECTRONICALLY SIGNED BY Saran Justice MD Narrative 04/12/2023 11:51 AM [facility] PROCEDURE INFORMATION: Exam: MR Abdomen Without and With Contrast Exam date and time: 04/12/2023 10:51 AM Age: 67 years old Clinical indication: Cyst of pancreas; Additional info: Pancreatic cyst TECHNIQUE: Imaging protocol: Magnetic resonance imaging of the abdomen without and with contrast. Contrast material: PROHANCE; Contrast volume: 13 ml; Contrast route: INTRAVENOUS (IV); ?? COMPARISON: No relevant prior studies available. FINDINGS: Liver: No mass. Gallbladder and bile ducts: No significant gallbladder pathology. Common bile duct is borderline in size for age at 8 mm. No obstructing lesion is seen. Pancreas: There are multifocal pancreatic cystic lesions. Clustering of some cysts limits size description. A multilocular cyst in the inferior pancreatic head is imaged on coronal images series 3, image 14 measures 2.5 cm in greatest dimension longitudinally. Another example is a cyst in the pancreatic head medially and inferiorly measuring 1.5 by 1.0 cm on series 6, image 27. There is a multilocular cyst in the pancreatic neck measuring up to 1.5 cm in greatest dimension on series 3, image 12, series 6, image 14. Pancreatic duct is mildly dilated at 5 mm. Smaller scattered cysts are also present. There is some side branch duct dilatation. No solid or nodular enhancing component of the cystic lesions is seen after contrast administration. Spleen: There is a septated cyst in the spleen measuring up to 2.7 cm in greatest dimension without solid or nodular enhancing component. Adrenal glands: No significant adrenal pathology. Kidneys and ureters: Benign-appearing renal cortical cysts are present. Stomach and bowel: Visualized stomach and intestines are unremarkable. Intraperitoneal space: No ascites. Vasculature: No abdominal aortic aneurysm. Lymph nodes: No enlarged nodes by criteria. Bones/joints: Levocurvature and degenerative change present in the lumbar spine. Soft tissues: Unremarkable. Other findings: Evaluation limited by motion artifacts. There is unremarkable except for 2 mm cysts Near the dome. Procedure Note Saran Justice MD - 04/12/2023 PROCEDURE INFORMATION: Exam: MR Abdomen Without and With Contrast Exam date and time: 04/12/2023 10:51 AM Age: 67 years old Clinical indication: Cyst of pancreas; Additional info: Pancreatic cyst TECHNIQUE: Imaging protocol: Magnetic resonance imaging of the abdomen without and with contrast. Contrast material: PROHANCE; Contrast volume: 13 ml; Contrast route: INTRAVENOUS (IV); COMPARISON: No relevant prior studies available. FINDINGS: Liver: No mass. Gallbladder and bile ducts: No significant gallbladder pathology. Common bile duct is borderline in size for age at 8 mm. No obstructing lesion is seen. Pancreas: There are multifocal pancreatic cystic lesions. Clustering of some cysts limits size description. A multilocular cyst in the inferior pancreatic head is imaged on coronal images series 3, image 14 measures 2.5 cm in greatest dimension longitudinally. Another example is a cyst in the pancreatic head medially and inferiorly measuring 1.5 by 1.0 cm on series 6, image 27. There is a multilocular cyst in the pancreatic neck measuring up to 1.5 cm in greatest dimension on series 3, image 12, series 6, image 14. Pancreatic duct is mildly dilated at 5 mm. Smaller scattered cysts are also present. There is some side branch duct dilatation. No solid or nodular enhancing component of the cystic lesions is seen after contrast administration. Spleen: There is a septated cyst in the spleen measuring up to 2.7 cm in greatest dimension without solid or nodular enhancing component. Adrenal glands: No significant adrenal pathology. Kidneys and ureters: Benign-appearing renal cortical cysts are present. Stomach and bowel: Visualized stomach and intestines are unremarkable. Intraperitoneal space: No ascites. Vasculature: No abdominal aortic aneurysm. Lymph nodes: No enlarged nodes by criteria. Bones/joints: Levocurvature and degenerative change present in the lumbar spine. Soft tissues: Unremarkable. Other findings: Evaluation limited by motion artifacts. There is unremarkable except for 2 mm cysts Near the dome. IMPRESSION: Multifocal pancreatic cystic lesions largest measuring up to 2.5 cm. Differential diagnosis led by side-branch IPMN in absence of history of pancreatitis. Mild dilatation of the main pancreatic duct raises the minor possibility of mixed main and side-branch duct type. Given this feature, EUS/FNA may be warranted. In absence of this, six-month follow-up is recommended for surveillance according to ACR recommendations. COMMENTS: Consistent with the [employer]'s Incidental Findings Committee white paper (J Am Akua Radiol 2018): Any incidental renal lesion less than 1 cm or classified as too small to characterize, or any incidental cystic renal lesion characterized as simple-appearing, is likely benign. No follow-up imaging is recommended for these lesions per consensus recommendations based on imaging criteria. THIS DOCUMENT HAS BEEN ELECTRONICALLY SIGNED BY Saran Justice MD Ny Monge MD IMG MRI ORDERABLES * Creatinine POC (04/12/2023 10:25 AM [facility]) Creatinine, POC 1.1 0.6 - 1.3 mg/dL 04/12/2023 10:33 AM [facility]SING [facility] Glomerular Filtration Rate Estimate Since serum creatinine is not elevated, 04/12/2023 10:33 AM [facility] Comment: GFR should be normal, GFR not calculated. Serum 04/12/2023 10:2 5 AM [facility] 04/12/2023 10:27 AM [facility] Ny Monge MD POINT OF CARE TEST O RDERABLES [place] [id number] [place], [place] [phone] [address] documented in this encounter Visit Diagnoses Diagnosis Pancreatic cyst Cyst and pseudocyst of pancreas documented in this encounter Administered Medications Inactive Administered Medications - up to 3 most recent administrations Medication Order MAR Action Action Date Dose Rate Site gadoteridol (PROHANCE) 279.3 MG/ML injection 3,630.9 mg (13 mL), Intravenous, ONCE, On 04/12/23 at 1130, For 1 dose Given 04/12/2023 11:28 AM [facility] 3,630.9 mg documented in this encounter Care Teams Aircraft Armament Mechanic Relationship Specialty Start Date End Date Crys Rodriges PA-C [address] [facility] [place] [place] [address] PCP - General Urgent Care 09/08/22 documented as of this encounter
--- OUTSIDE RECORDS SUMMARY | 2023-04-28 10:39 | XMS_ITS | Encounter Summary ---
Author Name Unknown Organization [facility] Address [address] [place] [address] Care Team Providers Care Director Of Quality Name Role Phone Crys Rodriges PA-C Primary Care Provider [phone]- [phone] Reason for Visit * Auth/Cert (Routine) Specialty Diagnoses / Procedures Referred By Fred lynch Referred To Contact Diagnoses Pancreatic Cyst Procedures LA EGD INTRMURAL NEEDLE ASPIR/BIOP ALTERED ANATOMY LA EDG US EXAM SURGICAL ALTER STOM DUODENUM/JEJUNUM Endo - Endoscopic Ultrasound, Indicated procedures Referral ID Status Reason Start Date Expiration Date Visits Re quested Visits Authorized [id number] 1 1 Encounter Details Date Type Department Care Team Description 09/08/2022 11:30 AM CDT - 09/08/2022 12:30 PM CDT Surgery [facility] Procedural Services [facility] [place], [place] [address] Ny Monge MD [facility] [place] [id number] Endo - EGD with Dilatation and Gastric Body and Atnrum Bx r/o H.phylori Surgery Details Date/Time Status Location OR Service Patient Class Case Class Case Type Trauma Case? 09/08/22 11:30 AM Posted [facility]/Bangura rgery G - Elective Panel 1 Procedure LRB Anes Op Region Wound Class Comments Endo - EGD with Dilatation a nd Gastric Body and Atnrum Bx r/o H.phylori N/A MAC Surgeon Surgeon Role Service Panel Ny Monge MD Primary Gastroenterology 1 Case Notes H&P ??Cpt 59714, [id number] [facility] [id number] documented in this encounter Social History Tobacco Use Types Packs/Day Years Used Date Smoking Tobacco: Never Smokeless Tobacco: Never Tobacco Cessation:Counseling Given: Not Answered Sex and Gender Information Value Date Recorded Sex Assigned at Not on file Gender Identity Female 04/05/2023 11:00 AM [facility] Sexual Orientation Straight 04/05/2023 11 :00 AM [facility] Job Start Date Occupation Industry Not on file Not on file Not on file documented as of this encounter Last Filed Vital Signs Vital Sign Reading Time Taken Comments Blood Pressure 117/69 09/08/2022 12:28 PM CDT Pulse 60 09/08/2022 12:28 PM CDT Temperature 36.3 ??C (97.4 ??F) 09/08/2022 10:09 AM C DT Respiratory Rate 16 09/08/2022 12:28 PM CDT Oxygen Saturation 100% 09/08/2022 12:28 PM CDT Inhaled Oxygen Concentration - - [...] QR code or Go to the Search [place] Library option found under the Resources tab in [employer]ens [email or web address]. If you do not have access to [employer]ens, you can visit [email or web address] and select [employer] from the menu on the left. Enter V730 in the search box to learn more about Learning About Monitored Anesthesia Care (MAC). Not on Siemens? Go to [email or web address] and click the Sign Up Now link to request an activation code. Current as of: January 09, 2022 Content Version: 13.6 ?? nodila. Care instructions adapted under license by your healthcare professional. This care instruction is for use with your licensed healthcare professional. If you have questions about a medical condition or this instruction, always ask your healthcare professional. nodila disclaims any warranty or liability for your [...] the day after the test, use an irln-dac-zndlige spray to numb your throat. Other instructions [...] August 26, 2021 Content Version: 13.6 ?? nodila. Care instructions adapted under license by your healthcare professional. This care instruction is for use with your licensed healthcare professional. If you have questions about a medical condition or this instruction, always ask your healthcare professional. nodila disclaims any warranty or liability for your use of this information. * Attachments The following attachments cannot be sent through Care Everywhere. * Ultrasound: Endoscopic (Oral): Post-op (Tajik) documented in this encounter Medications at Time [...] management, post-op care, blood transfusions, adverse reactions, PA, CVA, organ damage and .) Questions were [...] CDT Pancreatic Cyst Case Notes H&P ??Cpt 32487, [id number] [facility] [id number] EKG 12-LEAD Routine 09/08/2022 10:43 AM CDT PROTIME-INR STAT 09/08/2022 10:26 AM CDT COMPREHENSIVE METABOLIC PANEL STAT 09/08/2022 10:26 AM CDT ENDOSCOPIC ULTRASOUND (UPPER) Routine 09/08/2022 9:57 AM CDT documented in this encounter Results * Pathology/Tissue Specimen (09/08/2022 12:04 PM CDT) Pathology STOMACH STRUCTURE / Unknown 09/08/2022 12:04 PM CDT Comment:Pre-op diagnosis: Pancreatic Cyst Narrative [facility] - 09/09/2022 10:53 AM CDT CASE: [id number] PATIENT: FREEDOM SETH CLINICAL HISTORY/DIAGNOSIS: Pancreatic cyst. SPECIMEN SUBMITTED: Gastric body and antrum biopsy; r/o H. pylori. Performed at [facility], [address] [place] [address] ??[id number] [facility] REPORT ?Specimen No.: [id number] DIAGNOSIS: Stomach, biopsy: - Fragments of gastric oxyntic mucosa with mild chemical gastritis/reactive gastropathy. - H. pylori microorganisms are not identified. GROSS DESCRIPTION: Received in formalin labeled Freedom Seth and Gastric body and antrum biopsy consists of one irregular fragment of calderon tissue, measuring 7 mm in greatest diameter. ??Entirely submitted in A1. ??([facility]/jlc) MICROSCOPIC DESCRIPTION: Microscopic examination performed. ??([place]/jlc) Final Diagnosis performed by Levi Elmore MD Electronically signed 09/09/2022 10:42:38AM Ny Monge MD PATHOLOGY/CYTOLOGY O RDERABLES [place], [place] * EKG 12-lead (09/08/2022 10:43 AM CDT) 09/08/2022 10:4 3 AM CDT Narrative [facility] - 09/13/2022 12:57 PM CDT EKG REPORT Result Name ?Result ??Units ?------ ??----- Heart Rate ?62 ?bpm LA Interval ?182 ?ms Frontal [place]:P ?50 ?deg QRS Duration ?95 ?ms QT Interval ?442 ?ms QT Corrected ? 449 ?ms Frontal [place]: Mean QRS: ?-13 ?deg Frontal [place]: Terminal 40 ms. ?? 68 ?deg Frontal [place]: Terminal 40 ms. ??-39 ?deg Frontal [place]: T ? 45 ?deg Frontal [place]: ST ?70 ?deg ? ... Sinus rhythm... Electronically signed by: Siomara Barton 09-13-2022 12:57:36 Procedure Note Siomara Barton MD - 09/13/2022 EKG REPORT Result Name Result Units ------ ----- Heart Rate 62 bpm LA Interval 182 ms Frontal [place]:P 50 deg QRS Duration 95 ms QT Interval 442 ms QT Corrected 449 ms Frontal [place]: Mean QRS: -13 deg Frontal [place]: Terminal 40 ms. 68 deg Frontal [place]: Terminal 40 ms. -39 deg Frontal [place]: T 45 deg Frontal [place]: ST 70 deg ... Sinus rhythm... Electronically signed by: Siomara Barton 09-13-2022 12:57:36 Lisbeth LEIVA ECG ORDERABLES Performing Organization Address [facility]/ZIP Co de Phone Number [facility] * Protime-Inr (09/08/2022 10:26 AM CDT) Pathologist [facility] Protime 12.7 10.0 - 13.6 s 09/08/2022 10:58 AM [facility] INR 1.1 0.8 - 1.2 09/08/2022 10:58 AM [facility] Comment:Therapeutic Range (C onventional) 1.5-3.0 Therapeutic Range (Intensive) 3.0-4.5 Plasma BLOOD SPECIMEN / Unknown 09/08/2022 10:26 AM CDT 09/08/2022 10:28 AM CDT Lisbeth LEIVA LAB BLOOD ORDERABL ES Performing Organization Address [facility]/ZIP Co de Phone Number [facility] [place], [place] [phone] [address] * (ABNORMAL) Comprehensive metabolic panel (09/08/2022 10:26 AM CDT) [facility] Sodium 141 136 - 145 mmol/L 09/08/2022 11:10 AM [facility] Potassium 3.9 3.5 - 5.0 mmol/L 09/08/2022 11:10 AM [facility] Chloride 105 98 - 107 mmol/L 09/08/2022 11:10 AM [facility] CO2 26 22 - 29 mmol/L 09/08/2022 11:10 AM [facility] Glucose 85 74 - 109 mg/dL 09/08/2022 11:10 AM [facility] BUN 26(H) 6 - 23 mg/dL 09/08/2022 11:10 AM [facility] Creatinine 0.99(H) 0.51 - 0.95 mg/dL 09/08/2022 11:10 AM [facility] Calcium 9.9 8.6 - 10.2 mg/dL 09/08/2022 11:10 AM [facility] Total Protein 7.5 6.4 - 8.3 g/dL 09/08/2022 11:10 AM [facility] Albumin 4.4 3.5 - 5.2 g/dL 09/08/2022 11:10 AM [facility] Bilirubin Total 0.3 0.1 - 1.0 mg/dL 09/08/2022 11:10 AM [facility] Alkaline Phosphatase 96 35 - 104 U/L 09/08/2022 11:10 AM [facility] AST 26 10 - 35 U/L 09/08/2022 11:10 AM [facility] ALT 8(L) 10 - 35 U/L 09/08/2022 11:10 AM [facility] Anion Gap 10 7 - 14 mmol/L 09/08/2022 11:10 AM [facility] BUN/Creatinine Ratio 26.3(H) 7 - 23 09/08/2022 11:10 AM [facility] Osmolality Calculated 296(H) 275 - 295 mosm/kg 09/08/2022 11:10 AM [facility] Globulin 3.1 2.0 - 4.0 g/dL 09/08/2022 11:10 AM [facility] A/G Ratio 1.4 1.1 - 2.3 09/08/2022 11:10 AM [facility] Creatinine Based eGFR 62(L) >90 mL/min/[1. 73_m2] 09/08/2022 11:10 AM [facility] Comment: GFR 60-90 Mild decreased GFR. CKD-EPI 2020 formula used to calculate eGFR, effective [id number] Serum 09/08/2022 10:2 6 AM CDT 09/08/2022 10:28 AM T Lisbeth LEIVA LAB BLOOD ORDERABL ES [facility] [address] [place], [place] [phone] [facility] [address] [place] [address] * Endoscopic ultrasonography (Upper) (09/08/2022 9:57 AM [...] Stopped) documented in this encounter Care Teams Director Of Quality Relationship Specialty Start Date End Date Crys Rodriges PA-C [address] [place] [address] [place] [address] PCP - General Urgent Care 09/08/22 documented as of this encounter
--- OUTSIDE RECORDS SUMMARY | 2023-04-28 10:39 | XMS_ITS | Continuity of Care Document ---
Author Name Unknown Organization [facility] Address [address] [place] [address]- Care Team Providers Care Polymerization Oven Tender Name Role Phone AntelmoCrys Soledad Primary Care Physician Encounter 03/09/23 - 03/09/23 [address] [place] [address]- Discharge Disposition: Discharged to Home or Self [...] Pain/Discomfort, # 40 Tab, 0 Refill(s), Pharmacy: [facility] [address], 162.56, cm, 10/02/21 13:45:00 CDT, [...] Bedtime, # 90 Tab, 3 Refill(s), Pharmacy: [facility], 162.9, cm, 10/03/21 7:40:00 CDT, Height, 61.798, kg, 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 LACEMAKER, Weight Start Date: 09/02/22 Stop Date: 08/28/23 Status: Ordered etodolac 300 mg oral capsule Take 1 Cap, PO, BID, # 21 Cap, 0 Refill(s), Pharmacy: [facility] [address] [facility], 165, cm, 08/17/21 15:13:00 CDT, Height, 66, kg, 08/17/21 15:13:00 CDT, Weight Start Date: 08/17/21 Status: Ordered Evista 60 mg oral tablet Take 1 Tab, PO, Daily, # 90 Tab, 3 Refill(s), Pharmacy: [facility] [address] [facility], 162.9, cm, 10/03/21 7:40:00 CDT, Height, 61.798, kg, 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 LACEMAKER, Weight Start Date: 08/15/22 Status: Ordered Evista 60 mg oral tablet Take 1 Tab, PO, Daily, # 90 Tab, 0 Refill(s), Pharmacy: [facility] [address] [facility], 162.9, cm, 10/03/21 7:40:00 CDT, Height, 65.82, kg, 10/03/21 7:40:00 CDT, Weight Start Date: 03/11/22 Status: Ordered Fluticasone 50 mcg Nasal [place] 1 [place], Nares-Both, Daily, 0 Refill(s) Start Date: 07/22/21 Status: Ordered Ipratropium Nasal [place] 0.03% 2 [place], Nares-Both, BID, 0 Refill(s) Start Date: 07/22/21 [...] Daily, # 90 Each, 0 Refill(s), Pharmacy: [facility] [id number] [facility], 162.9, cm, 10/03/21 7:40:00 CDT, Height, 61.798, kg, 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 LACEMAKER, Weight Start Date: 05/25/22 Status: Ordered sertraline [...] Completed Esophagogastroduodenoscopy 3 12/01/11 Completed Esophagogastroduodenoscopy 4 3/12/12 Completed Esophagogastroduodenoscopy 5 12/30/10 Completed Esophagogastroduodenoscopy 6 [...] Exam Date Time Procedure Performing Provider Status 03/09/23 10:43 AM MRI L-Spine w/o Contrast Dallas Kwan; Auth (Verified) Notes: (MRI L-Spine w/o Contrast) Reason For Exam: new bilateral leg pain, lumbar stenosis with neurogenicclaudication REPORT PROCEDURE: MRI L-Spine w/o Contrast. DEMOGRAPHICS: 67 years. Female. TECHNIQUE: Multiplanar magnetic resonance imaging performed without intravenous gadolinium. INDICATION: new bilateral leg pain, lumbar stenosis with neurogenic claudication. COMPARISON: 09/16/2022 FINDINGS: The lowest lumbar type vertebral body on sagittal images is considered to be L5. Close correlation is suggested prior to any planned intervention. Levoconvex curvature of the lumbar spine. There is no evidence of acute compression fracture.. Multilevel posterior decompressive change. There is a T2 hyperintensity within the spleen and pancreatic head. Please refer to abdominal MRI of 08/07/2022 for additional details. Renal T2 hyperintensities also seen. SEGMENTAL FINDINGS: L1-L2:Mild disc bulge. No evidence of significant central spinal canal or foraminal narrowing. L2-L3:Grade 1 retrolisthesis of L2 on L3. Diffuse disc bulge with bilateral facet degenerative changes. At least mild central spinal canal narrowing. Advanced right and mild left foraminal narrowing. L3-L4:Diffuse disc bulge with bilateral facet degenerative changes. No evidence of significant central spinal canal narrowing. Advanced right and mild to moderate left foraminal narrowing. L4-L5:Diffuse disc bulge with bilateral facet degenerative changes. No evidence of significant central spinal canal narrowing. Moderate to advanced bilateral foraminal narrowing. L5-S1:Facet degenerative changes, left greater than right. Disc bulge. No evidence of significant central spinal canal narrowing. Moderate to advanced left and mild right foraminal narrowing. IMPRESSION: 1.. Levoconvex curvature of the lumbar spine. Degenerative and postsurgical changes as detailed above. Endplate degenerative signal changes most notable at L2-L3. 2. At least mild central spinal canal narrowing at the L2-L3 level. 3. Multilevel high-grade foraminal narrowing as detailed above. 4. Please refer to abdominal MRI of 07/28/2022 for important abdominal findings. FINAL REPORT Dictated By: Avery Joyce MD 03/09/2023 11:41 Assigned Physician: Avery Joyce MD Reviewed and Electronically Signed By: Avery Joyce MD 03/09/2023 11:55 Transcribed by: [facility] 03/09/2023 11:41 Technologist: FREDY Social History Social History Type Response Smoking Status Former smoker, quit more than 1 year ago Sex MR Lumbar spine WO contrast * Powerscribe, Self Correct: TRANSCRIBE Powerscribe, Self Correct: TRANSCRIBE, VERIFY Avery Joyce MD: VERIFY, VERIFY Avery Jocye MD: VERIFY Event Display: Report Authored Date: [id number] PROCEDURE: MRI L-Spine w/o Contrast. DEMOGRAPHICS: 67 years. Female. TECHNIQUE: Multiplanar magnetic resonance imaging performed without intravenous gadolinium. INDICATION: new bilateral leg pain, lumbar stenosis with neurogenic claudication. COMPARISON: 09/16/2022 FINDINGS: The lowest lumbar type vertebral body on sagittal images is considered to be L5. Close correlation is suggested prior to any planned intervention. Levoconvex curvature of the lumbar spine. There is no evidence of acute compression fracture.. Multilevel posterior decompressive change. There is a T2 hyperintensity within the spleen and pancreatic head. Please refer to abdominal MRI of 08/07/2022 for additional details. Renal T2 hyperintensities also seen. SEGMENTAL FINDINGS: L1-L2:Mild disc bulge. No evidence of significant central spinal canal or foraminal narrowing. L2-L3:Grade 1 retrolisthesis of L2 on L3. Diffuse disc bulge with bilateral facet degenerative changes. At least mild central spinal canal narrowing. Advanced right and mild left foraminal narrowing. L3-L4:Diffuse disc bulge with bilateral facet degenerative changes. No evidence of significant central spinal canal narrowing. Advanced right and mild to moderate left foraminal narrowing. L4-L5:Diffuse disc bulge with bilateral facet degenerative changes. No evidence of significant central spinal canal narrowing. Moderate to advanced bilateral foraminal narrowing. L5-S1:Facet degenerative changes, left greater than right. Disc bulge. No evidence of significant central spinal canal narrowing. Moderate to advanced left and mild right foraminal narrowing. IMPRESSION: 1.. Levoconvex curvature of the lumbar spine. Degenerative and postsurgical changes as detailed above. Endplate degenerative signal changes most notable at L2-L3. 2. At least mild central spinal canal narrowing at the L2-L3 level. 3. Multilevel high-grade foraminal narrowing as detailed above. 4. Please refer to abdominal MRI of 07/28/2022 for important abdominal findings. FINAL REPORT Dictated By: Avery Joyce MD 03/09/2023 11:41 Assigned Physician: Avery Joyce MD Reviewed and Electronically Signed By: Avery Joyce MD 03/09/2023 11:55 Transcribed by: DYLON 03/09/2023 11:41 Technologist: FREDY Patient Care team information Care Team Personnel Name: Sameer Cortez MD Position: Non User Member Role: Family Physician Address: Address: [facility] [address] Name: Crys Rodriges NP Position: [facility] II - PB Member Role: Primary Care Physician Address: Address: [facility] [address] [place] [id number] Care Team Related Persons Name: PETER JOHNSON Address: [address] [facility]
--- OUTSIDE RECORDS SUMMARY | 2023-04-28 10:39 | XMS_ITS | Clinical Summary ---
Author Name Unknown Organization [facility] Address [address] [place] [address] Care Team Providers Care Channel Development Director Name Role Phone Crys Rodriges PA-C Primary Care Provider [phone] Source Comments This disclosure is being made pursuant to the qcue program and maynot contain all information available regarding this patient.[facility] Allergies No known active allergies Medications Medication Sig Dispensed Refills Start Date End Date Status amLODIPine (NORVASC) 5 MG tablet Take 5 mg by mouth daily. 0 Active atorvastatin (LIPITOR) 20 MG tablet Take 20 mg by mouth daily. 0 Active cetirizine (ZYRTEC) 10 MG tablet Take 10 mg by mouth daily. 0 Active donepezil (ARICEPT) 5 MG tablet Take 5 mg by mouth nightly. 0 Active fluticasone NASAL (FLONASE) 50 MCG/ACT nasal spray 1 spray by Nasal route daily. to each nostril 0 Active nadolol (CORGARD) 40 MG tablet Take 40 mg by mouth daily. 0 Active sertraline (ZOLOFT) 100 MG tablet Take 100 mg by mouth daily. 0 Active doxepin (SINEQUAN) 10 MG capsule Take 3 mg by mouth nightly. 0 Active Encounters Date Type Department Care Team Description 04/12/2023 10:22 AM CYBER INCIDENT RESPONDER - 04/12/2023 11:59 PM CYBER INCIDENT RESPONDER Hospital Encounter [facility] [address] [place], [place] [address] Ny Monge MD Pancreatic cyst Discharge Disposition: Home - Discharge to Home or Self Care 04/12/2023 Travel 03/18/2023 Transcribe Orders [facility] [address] [place] [address] Ny Monge MD Pancreatic cyst (Primary Dx) from Last 3 Months Social History Tobacco Use Types Packs/Day Years Used Date Smoking Tobacco: Never Smokeless Tobacco: Never Tobacco Cessation:Counseling Given: Not Answered Sex and Gender Information Value Date Recorded Sex Assigned at Not on file Gender Identity Female 04/05/2023 11:00 AM CYBER INCIDENT RESPONDER Sexual Orientation Straight 04/05/2023 11 :00 AM CYBER INCIDENT RESPONDER Job Start Date Occupation Industry Not on file Not on file Not on file Last Filed Vital Signs Vital Sign Reading [...] Mass Index 21.79 09/08/2022 10:09 AM CDT Plan of Treatment Health Maintenance Due Date Last Done Comments Breast Cancer Screening-Mammogram 1954 CT Colonography 1954 Colonoscopy 1954 Colorectal Cancer Screening 1954 Fecal DNA Test 1954 Lab-Cholesterol Screening 1954 Lab-Hepatitis C Screening 1954 Osteoporosis Screening-Bone Density 1954 Sigmoidoscopy 1954 Tetanus/Pertussis Vaccine Teen/Adult (1 - Tdap) 1973 FOBT/FIT 1974 Zoster (Shingles) Vaccine 50+ (1 of 2) 2004 RSV Adult (1 - 1-dose 60+ series) 2014 Pneumococcal Vaccines 65+ (1 - PCV) 07/01/2019 First Medicare Annual Wellness (AWV) 06/21/2020 COVID-19 Vaccine Completed 12/12/2022, 03/2021, 07/22/2021, Additional history exists Influenza Vaccine Completed 12/12/2022, , 11/26/2020, Additional history exists HIB Vaccine Aged Out No longer eligi ble based on patient's age to complete this topic HPV Vaccine (F:9-26YO,M: 9-22) Aged Out No longer eligible based on patient's age to complete this topic Hepatitis A Vaccine Aged Out No longe r eligible based on patient's age to complete this topic IPV Vaccine Aged Out No longer eligi ble based on patient's age to complete this topic Meningococcal Conjugate Vaccine Aged Out No longer eligible based on patient's age to complete this topic RSV < 20 Months Aged Out No longer el igible based on patient's age to complete this topic Procedures Procedure Name Priority Date/Time Associated Diagnosis Comments MRI ABDOMEN W WO CONTRAST Routine 04/12/2023 11:35 AM CYBER INCIDENT RESPONDER Pancreatic cyst CREATININE POC STAT 04/12/2023 10:25 AM CYBER INCIDENT RESPONDER from Last 3 Months Results * MRI Abdomen w wo Contrast (04/12/2023 11:35 AM CYBER INCIDENT RESPONDER) Anatomical Region Laterality Modality Abdomen Magnetic Resonan ce 04/12/2023 10:5 1 AM CYBER INCIDENT RESPONDER Impressions 04/12/2023 11:51 AM CYBER INCIDENT RESPONDER Multifocal pancreatic cystic lesions largest measuring up [...] to ACR recommendations. COMMENTS: Consistent with the [employer]'s Incidental Findings Committee white paper (J Am Akua [employer]iol 2018): Any incidental renal lesion less than 1 cm or classified as too small to characterize, or any incidental cystic renal lesion characterized as simple-appearing, is likely benign. No follow-up imaging is recommended for these lesions per consensus recommendations based on imaging criteria. THIS DOCUMENT HAS BEEN ELECTRONICALLY SIGNED BY Saran Manuel 04/12/2023 11:51 AM CYBER INCIDENT RESPONDER PROCEDURE INFORMATION: Exam: MR Abdomen Without and [...] to ACR recommendations. COMMENTS: Consistent with the [employer]'s Incidental Findings Committee white [...] ORDERABLES * Creatinine POC (04/12/2023 10:25 AM CYBER INCIDENT RESPONDER) Creatinine, POC 1.1 0.6 - 1.3 mg/dL 04/12/2023 10:33 AM CYBER INCIDENT RESPONDER [facility] Glomerular Filtration Rate Estimate Since serum creatinine is not elevated, 04/12/2023 10:33 AM [facility] Comment: GFR should be normal, GFR not calculated. Serum 04/12/2023 10:2 5 AM CYBER INCIDENT RESPONDER 04/12/2023 10:27 AM CYBER INCIDENT RESPONDER Ny Monge MD POINT OF CARE TEST O RDERABLES [facility] [address] [place], [place] [phone] [address] from Last 3 Months Care Teams Channel Development Director Relationship Specialty Start Date End Date Crys Rodriges PA-C [address] [place] [id number] PCP - General Urgent Care 09/08/22
--- OUTSIDE RECORDS SUMMARY | 2023-04-28 10:39 | XMS_ITS | Encounter Summary ---
Author Name Unknown Organization [facility] Address [address] [place] [address] Care Team Providers Care Mental Health Director Name Role Phone Crys Rodriges PA-C Primary Care Provider [phone]- [phone] Reason for Referral * MRI/CAT Scan (Routine) - Authorization Not Needed Specialty Diagnoses / Procedures Referred By Fred lynch Referred To Contact Radiology Diagnoses Pancreatic cyst Procedures MRI Abdomen w wo Contrast Ny Monge MD [address] [place] [address] Referral ID Status Reason Start Date Expiration Date Visits Requested Visits Authorized [id number] Authorization Not Needed 3 09/18/2024 1 1 THAND TEACHER Encounter Details Date Type Department Care Team Description 03/18/2023 Transcribe Orders [facility] [address] [place], [place] [address] Ny Monge MD [facility] [place], [place] [address] Pancreatic cyst (Primary Dx) Social History Tobacco Use Types Packs/Day Years Used Date Smoking Tobacco: Never Smokeless Tobacco: Never Sex and Gender Information Value Date Recorded Sex Assigned at Not on file Gender Identity Female 04/05/2023 11:00 AM SHORTHAND TEACHER Sexual Orientation Straight 04/05/2023 11 :00 AM SHORTHAND TEACHER Job Start Date Occupation Industry Not on file Not on file Not on file documented as of this encounter Plan of Treatment Not on file documented as of this encounter Results * MRI Abdomen w wo Contrast (04/12/2023 11:35 AM SHORTHAND TEACHER) Anatomical Region Laterality Modality Abdomen Magnetic Resonan ce 04/12/2023 10:5 1 AM SHORTHAND TEACHER Impressions 04/12/2023 11:51 AM SHORTHAND TEACHER Multifocal pancreatic cystic lesions largest measuring up [...] to ACR recommendations. COMMENTS: Consistent with the [employer]'s Incidental Findings Committee white [...] Saran Justice MD Narrative 04/12/2023 11:51 AM SHORTHAND TEACHER PROCEDURE INFORMATION: Exam: MR Abdomen Without and [...] to ACR recommendations. COMMENTS: Consistent with the [employer]'s Incidental Findings Committee white [...] MD Ny Monge MD IMG MRI ORDERABLES documented in this encounter Visit Diagnoses Diagnosis Pancreatic cyst- Primary Cyst and pseudocyst of pancreas Pancreatic cyst Cyst and pseudocyst of pancreas documented in this encounter Care Teams Mental Health Director Relationship Specialty Start Date End Date Crys Rodriges PA-C [address] [place] [address] PCP - General Urgent Care 09/08/22 documented as of this encounter
--- OUTSIDE RECORDS SUMMARY | 2023-04-28 10:39 | XMS_ITS | Encounter Summary ---
Author Name Unknown Organization [facility] Address [address] [place] [address] Care Team Providers Care Black Ash Worker Name Role Phone Crys Rodriges PA-C Primary Care Provider [phone] Encounter Details Date Type Department Care Team Description 10/16/2022 Transcribe Orders [facility] [address] [place], [place] [address] Ny Monge MD [address] [place] [address] Duodenal stricture (Primary Dx) Social History Tobacco Use Types Packs/Day Years Used Date Smoking Tobacco: Never Smokeless Tobacco: Never Sex and Gender Information Value Date Recorded Sex Assigned at Not on file Gender Identity Female 04/05/2023 11:[address] SUPERVISOR Sexual Orientation Straight 04/05/2023 11 :[address] SUPERVISOR Job Start Date Occupation Industry Not on file Not on file Not on file documented as of this encounter Plan of Treatment Not on file documented as of this encounter Visit Diagnoses Diagnosis Duodenal stricture- Primary Other obstruction of duodenum documented in this encounter Care Teams Black Ash Worker Relationship Specialty Start Date End Date Crys Rdoriges PA-C [address] [place] [address] PCP - General Urgent Care 09/08/22 documented as of this encounter
--- OUTSIDE RECORDS SUMMARY | 2023-04-28 10:40 | XMS_ITS | Referral Summary ---
Author Name Unknown Organization [facility] Address [address] [place] [address] Phone Care Team Providers Care Manuscript Editor Name Role Phone Crys Rodriges Primary Care Provider [phone] Source Comments This disclosure is being made pursuant to the Care Everywhere program,applicable federal and state laws, and may not contain all informationavailable regarding this patient.[facility] Practices Encounters Date Type Department Care Team Description 04/26/2023 Refill Medicine Specialty Clinic: Pulmonary [address] [place] [address] Erick Daniels MD from Last 3 Months Allergies No known active allergies Medications Medication [...] sinusitis 11/22/2019 History of MAC infection 11/22/2019 Immunizations Name Administration Dates Next Due COVID-19, [...] 06/01/2006 Tdap 06/10/2016 Zoster, recombinant (Shingrix) 9,08/23/2018,05/30/2018,2018 Social History Tobacco Use Types Packs/Day Years Used Date Smoking Tobacco: Former Cigarettes 1 30 Q uit: 11/21/2001 Smokeless Tobacco: Former Alcohol Use Standard Drinks/Week Comments Not Currently 0 (1 standard drink = 0.6 oz pur e alcohol) Sex and Gender Information Value Date Recorded Sex Assigned at Female 03/25/2020 12:24 PM BOILER HOUSE OPERATOR Gender Identity Female 03/25/2020 12:24 PM BOILER HOUSE OPERATOR Sexual Orientation Straight 03/25/2020 12 :24 PM BOILER HOUSE OPERATOR Last Filed Vital Signs Vital Sign Reading Time Taken Comments Blood Pressure 137/70 04/24/2022 11:37 AM BOILER HOUSE OPERATOR Pulse 68 04/24/2022 11:37 AM BOILER HOUSE OPERATOR Temperature 35.7 ??C (96.3 ??F) 04/24/2022 11:[address] Respiratory Rate 16 04/01/2021 3:03 PM BOILER HOUSE OPERATOR Oxygen Saturation 100% 04/01/2021 3:03 PM BOILER HOUSE OPERATOR Inhaled Oxygen Concentration - - Weight 62 kg (136 lb 11 oz) 04/24/2022 11:37 AM BOILER HOUSE OPERATOR Height 161.3 cm (5' 3.5) 04/24/2022 11:37 AM CS T Body Mass Index 23.83 04/24/2022 11:37 AM BOILER HOUSE OPERATOR Plan of Treatment Not on file Advance Directives For more information, please contact: [phone] Documents on File Type Date Recorded Patient Bicycle Subassembler Expl anation External-Advance Directive/Living Will/Durable Power of Linen Folder for Healthcare 12/08/2019 12:27 PM Living Will & DPOA f or Health Care Care Teams Manuscript Editor Relationship Specialty Start Date End Date Crys Rodriges [address] [place] [address] PCP - General Physician Aviation Tactical Readiness Officer 04/01/21
--- OUTSIDE RECORDS SUMMARY | 2023-04-28 10:40 | XMS_ITS | Encounter Summary ---
Author Name Unknown Organization [facility] Address [address] [place] [address] Phone Care Team Providers Care Quarry Supervisor Open Pit Name Role Phone Crys Rodriges [place] Primary Care Provider [phone] Encounter Details Date Type Department Care Team (Late st Contact Info) Description 04/08/2022 Orders/Notes Neurosurgery Clinic [address] [place] [address] Luigi Armas MD [address] [place] [address] Social History Tobacco Use Types Packs/Day Years Used Date Smoking Tobacco: Former Cigarettes 1 35 Q uit: 10/21/2009 Cigars Smokeless Tobacco: Never Alcohol Use Standard Drinks/Week Comments Not Currently 0 (1 standard drink = 0.6 oz pur e alcohol) Sex and Gender Information Value Date Recorded Sex Assigned at Female 03/25/2020 12:24 PM BUSINESS DEVELOPMENT COORDINATOR Gender Identity Female 03/25/2020 12:24 PM BUSINESS DEVELOPMENT COORDINATOR Sexual Orientation Straight 03/25/2020 12 :24 PM BUSINESS DEVELOPMENT COORDINATOR documented as of this encounter Plan of Treatment Not on file documented as of this encounter Results * EXTERNAL X-RAY L-SPINE - STORE ONLY (04/08/2022 11:43 AM BUSINESS DEVELOPMENT COORDINATOR) Luigi Armas MD RAD EXTERNAL IMAGES [facility] RADIOLOGY ORDERS OUTBOUND [address] [place] [address] * EXTERNAL X-RAY L-SPINE - STORE ONLY (04/08/2022 11:43 AM BUSINESS DEVELOPMENT COORDINATOR) Luigi Armas MD RAD EXTERNAL IMAGES Performing Organization Address City/[facility]/ZIP Co de Phone Number [facility] RADIOLOGY ORDERS OUTBOUND [address] [place] [address] * EXTERNAL X-RAY L-SPINE - STORE ONLY (04/08/2022 11:43 AM BUSINESS DEVELOPMENT COORDINATOR) Luigi Armas MD RAD EXTERNAL IMAGES [facility] RADIOLOGY ORDERS OUTBOUND [address] [place] [address] * EXTERNAL X-RAY L-SPINE - STORE ONLY (04/08/2022 11:42 AM BUSINESS DEVELOPMENT COORDINATOR) Luigi Armas MD RAD EXTERNAL IMAGES Performing Organization Address City/[facility]/ZIP Co de Phone Number [facility] RADIOLOGY ORDERS OUTBOUND [address] [place] [address] * EXTERNAL MRI LUMBAR SPINE - STORE ONLY (04/08/2022 11:42 AM BUSINESS DEVELOPMENT COORDINATOR) Luigi Armas MD RAD EXTERNAL IMAGES Performing Organization Address City/[facility]/RUST Co de Phone Number [facility] RADIOLOGY ORDERS OUTBOUND [address] [place] [address] * EXTERNAL MRI LUMBAR SPINE - STORE ONLY (04/08/2022 11:41 AM BUSINESS DEVELOPMENT COORDINATOR) Luigi Armas MD RAD EXTERNAL IMAGES Performing Organization Address City/[facility]/ZIP Co de Phone Number [facility] RADIOLOGY ORDERS OUTBOUND [address] [place] [address] documented in this encounter Visit Diagnoses Not on filedocumented in this encounter Care Teams Quarry Supervisor Open Pit Relationship Specialty Start Date End Date Crys Rodriges [address] [place] [address] PCP - General Physician Regional Manager 04/01/21 documented as of this encounter
--- OUTSIDE RECORDS SUMMARY | 2023-04-28 10:40 | XMS_ITS | Encounter Summary ---
Author Name Unknown Organization [facility] Address [address] [place] [address] Phone Care Team Providers Care Pulp Mill Team Leader Name Role Phone Crys Rodriges Primary Care Provider [phone] Reason for Visit * Reason Comments Medication Refill Encounter Details Date Type Department Care Team (Late st Contact Info) Description 04/26/2023 Refill Medicine Specialty Clinic: Pulmonary [address] [place] [id number] Erick Daniels MD [address] [place] [address] Social History Tobacco Use Types Packs/Day Years Used Date Smoking Tobacco: Former Cigarettes 1 30 Q uit: 11/21/2001 Smokeless Tobacco: Former Alcohol Use Standard Drinks/Week Comments Not Currently 0 (1 standard drink = 0.6 oz pur e alcohol) Sex and Gender Information Value Date Recorded Sex Assigned at Female 03/25/2020 12:24 PM [employer] Gender Identity Female 03/25/2020 12:24 PM [employer] Sexual Orientation Straight 03/25/2020 12 :24 PM [employer] documented as of this encounter Plan of Treatment Not on file documented as of this encounter Visit Diagnoses Diagnosis Vasomotor rhinitis Allergic rhinitis, cause unspecified Non-seasonal allergic rhinitis due to pollen documented in this encounter Care Teams Pulp Mill Team Leader Relationship Specialty Start Date End Date Crys Rodriges [address] [place] [id number] PCP - General Physician [employer] 04/01/21 documented as of this encounter
== END 2023-04-28 10:29 | disposition home or self-care (01) ==
LOC: INJ CL 10:35
PROVIDERS: Visit Provider Family Medicine
DX: M51.36 Other intervertebral disc degeneration, lumbar region (principal); M54.16 Radiculopathy, lumbar region
CPT/HCPCS: 62323; J1100; Q9966

== ENCOUNTER 2024-05-10 10:26 | Outpatient (CLI) | payer MEDICARE, OTHER, SELFPAY | END 2024-05-10 10:27 | disposition home or self-care (01) | LOC: INJ CL 10:27 | PROVIDERS: PCP Physician Assistant; Visit Provider Family Medicine | DX: M53.3 Sacrococcygeal disorders, not elsewhere classified (principal) | CPT/HCPCS: 27096; J0702; Q9966 ==